=== PATIENT | male | born 1960 | race Caucasian/White ===

== ENCOUNTER 2016-08-24 15:09 | Inpatient (IN) | payer OTHER ==
[2016-08-24] VITALS (10 sets, daily range): BP systolic 92–115; BP diastolic 57–83
[~2016-08-24] VITALS: Ht 170.2 cm; Wt 72.8 kg
[~2016-08-24 15:09] MED LIST: BP MED
--- OUTSIDE RECORDS SUMMARY | 2016-08-24 15:16 | XMS REPORT | Continuity of Care Document ---
Author Author [facility] Organization [facility] Address Unknown Phone Unavailable Support Name Relationship Address Phone ALEXIA WALLACE MD Caregiver [address], [address] [place] [address] CORDELIA SMITH Next Of Kin [address] [place] [address] Insurance Providers Payer Name Policy Number Subscriber Name Relationship Unknown Luis Smith Sr 16 Self / Same As Patient Advance Directives Directive Response Recorded Date/Time Advance Directives No 07/15/14 9:11am Resuscitation Status Full Code 07/15/14 9:11am Problems No known problems or medical conditions. Medications Medication Dose Route Sig Days/Qty Instructions Order Date Discontinued Date Status [Bp Med] 07/15/14 Active Social History Social History Problem Response Recorded Date/Time Alcohol Use Occasionally Uses 07/15/2014 9:11am Recreational Drug Use No 07/15/2014 9:11am Recent Foreign Travel No 07/15/2014 9:07am Recent Infectious Disease Exposure No 07/15/2014 9:07am Smoking Status Current Everyday Smoker 07/15/2014 9:11am Query Response Start Date Stop Date Smoking Status Current Everyday Smoker Hospital Discharge Instructions No hospital discharge instructions. Plan of Care No plan of care. Functional Status Query Response Date Recorded Patient Orientation Person Place Time Situation July 15, 2014 9:07am Comprehension Ability Understands Concepts July 15, 2014 9:07am Allergies, Adverse Reactions, Alerts Allergen Type Severity Reaction Status Last Updated No Known Drug Allergies Active 07/15/14 Immunizations No immunization records. Vital Signs Acute Vital Signs Vital Response Date/Time Temperature (Fahrenheit) 97.2 degrees F (97.6 - 99.5) Temperature (Calculated Celsius) 36.76343 degrees C (36.4 - 37.5) Temperature Source Temporal Pulse Rate (adult) 90 bpm (60 - 90) Respiratory Rate 18 bpm (12 - 24) O2 Sat by Pulse Oximetry 97 % (88 - 100) Blood Pressure 180/104 mm Hg Pain Pain Intensity 0 Height (Feet) 5 feet Height (Inches) 11 inches Height (Calculated Centimeters) 180.943021 cm Weight (Pounds) 178 pounds Weight (Calculated Kilograms) 80.924993 kilograms Calculated BMI 24.82 Results Laboratory Results Test Name Result Units Flags Reference Collection Date/Time Result Date/ Time Comments White Blood Count 11.1 10^3/uL H 4.3-11.0 07/15/2014 9:1507/15/2014 10 :53am Red Blood Count 5.88 10^6/uL H 4.35-5.85 07/15/2014 9:1507/15/2014 10: 53am Hemoglobin 17.2 G/DL 13.3-17.7 07/15/2014 9:1507/15/2014 10:53am Hematocrit 49 % 40-54 07/15/2014 9:1507/15/2014 10:53am Mean Corpuscular Volume 83 FL 80-99 07/15/2014 9:1507/15/2014 10: 53am Mean Corpuscular Hemoglobin 29 PG 25-34 07/15/2014 9:1507/15/2014 10 :53am Mean Corpuscular Hemoglobin Concent 35 G/DL 32-36 07/15/2014 9:1512/2014 10:53am Red Cell Distribution Width 13.0 % 10.0-14.5 07/15/2014 9:152014 10:53am Platelet Count 255 10^3/uL 130-400 07/15/2014 9:1507/15/2014 10: 53am Mean Platelet Volume 11.2 FL H 7.4-10.4 07/15/2014 9:1507/15/2014 10: 53am Neutrophils (%) (Auto) 68 % 42-75 07/15/2014 9:1507/15/2014 10:53am Lymphocytes (%) (Auto) 21 % 12-44 07/15/2014 9:1507/15/2014 10:53am Monocytes (%) (Auto) 5 % 0-12 07/15/2014 9:1507/15/2014 10:53am Eosinophils (%) (Auto) 5 % 0-10 07/15/2014 9:1507/15/2014 10:53am Basophils (%) (Auto) 1 % 0-10 07/15/2014 9:1507/15/2014 10:53am Neutrophils # (Auto) 7.5 X 10^3 1.8-7.8 07/15/2014 9:1507/15/2014 10 :53am Lymphocytes # (Auto) 2.4 X 10^3 1.0-4.0 07/15/2014 9:1507/15/2014 10 :53am Monocytes # (Auto) 0.6 X 10^3 0.0-1.0 07/15/2014 9:1507/15/2014 10: 53am Eosinophils # (Auto) 0.5 10^3/uL H 0.0-0.3 07/15/2014 9:1507/15/2014 10:53am Basophils # (Auto) 0.1 10^3/uL 0.0-0.1 07/15/2014 9:1507/15/2014 10: 53am Sodium Level 140 MMOL/L 135-145 07/15/2014 9:1507/15/2014 11:14am Potassium Level 3.8 MMOL/L 3.6-5.0 07/15/2014 9:1507/15/2014 11: 14am Chloride Level 105 MMOL/L 98-107 07/15/2014 9:1507/15/2014 11:14am Carbon Dioxide Level 25 MMOL/L 21-32 07/15/2014 9:1507/15/2014 11: 14am Blood Urea Nitrogen 23 MG/DL H 7-18 07/15/2014 9:1507/15/2014 11:14am Creatinine 1.01 MG/DL 0.60-1.30 07/15/2014 9:1507/15/2014 11:14am BUN/Creatinine Ratio 23 07/15/2014 9:1507/15/2014 11:14am Estimat Glomerular Filtration Rate > 60 07/15/2014 9:152014 11:14am GFR INTERPRETIVE DATA UNITS FOR ESTIMATED GFR (eGFR): mL/min/1.73 M2 REFERENCE RANGE FOR ESTIMATED GFR (eGFR) eGFR NORMAL eGFR >60 MODERATELY DECREASED eGFR 30-59 SEVERLY DECREASED eGFR 15-29 KIDNEY FAILURE <15 (OR DIALYSIS) Glucose Level 248 MG/DL H 70-105 07/15/2014 9:15am 07/15/2014 11:14am Calcium Level 9.6 MG/DL 8.5-10.1 07/15/2014 9:1507/15/2014 11:14am Total Bilirubin 1.1 MG/DL H 0.1-1.0 07/15/2014 9:1507/15/2014 11:14am Alkaline Phosphatase 89 U/L 40-136 07/15/2014 9:1507/15/2014 11: 14am Aspartate Amino Transf (AST/SGOT) 22 U/L 5-34 07/15/2014 9:152014 11:14am Alanine Aminotransferase (ALT/SGPT) 45 U/L 0-55 07/15/2014 9:15am 07/15 11:14am Total Protein 7.4 G/DL 6.4-8.2 07/15/2014 9:15am 07/15/2014 11:14am Albumin 4.3 G/DL 3.2-4.5 07/15/2014 9:15am 07/15/2014 11:14am Procedures No known history of procedures. Encounters Encounter Location Date/Time Departed Emergency Room Via [facility] 07/15/14 9:04am Recent Diagnosis
[2016-08-24] MEDS ORDERED: LOSA1TAB70 PO (16:07)
[2016-08-24] MEDS ORDERED: ATEN50TA (16:07)
[2016-08-24] MEDS ORDERED: METF500T4 PO (16:07)
[2016-08-24] MEDS ORDERED: ATOR10TA66 PO (16:07)
[2016-08-24] MEDS ORDERED: TIOT18CA2 (16:07)
--- NOTE | 2016-08-24 16:09 | ED General ---
General Chief Complaint: General Problems/Pain Stated Complaint: WEAKNESS/NO ENERGY Nursing Triage Note: PT CO OF WEAKNESS FOR APPROX 1 WEEK, PT HAS NOT HAD BM FOR A WEEK, Nursing Sepsis Screen: No Definite Risk Source of Information: Patient Exam Limitations: No Limitations (BHARGAV PIERRE APRN) History of Present Illness Time Seen by Provider: 16:08 Initial Comments To ER with general weakness and shortness of breath for one week. Also states he is not a bowel movement for one week which is unusual for him. However, he does continue to pass gas. No nausea vomiting. No fevers or chills. No cough. No trauma or injury to the chest. Timing/Duration: 1 Week Severity: Moderate Associated Systoms: No Cough, Weakness (BHARGAV PIERRE APRN) Allergies and Home Medications Allergies Coded Allergies: No Known Drug Allergies (Unverified , 07/15/14) Home Medications (Reported) Atenolol 50 Mg Tablet #30 (Reported) Atorvastatin Calcium 10 Mg Tablet #30 (Reported) Losartan/Hydrochlorothiazide 1 Each Tablet #30 (Reported) Metformin HCl 500 Mg Tablet #60 (Reported) Tiotropium [place] 1 Inh Aerp #30 (Reported) Constitutional: see HPI EENTM: see HPI Respiratory: see HPI short of breath Cardiovascular: no symptoms reportedNo chest pain Genitourinary: no symptoms reported Musculoskeletal: no symptoms reported Skin: no symptoms reported Psychiatric/Neurological: No Symptoms Reported Hematologic/Lymphatic: No Symptoms Reported Immunological/Allergic: no symptoms reported (BHARGAV PIERRE APRN) Past Ymsugrx-Lprpim-Rzxeom Hx Patient Social History Alcohol Use: Denies Use Recreational Drug Use: No Smoking Status: Current Everyday Smoker Type Used: Cigarettes Recent Foreign Travel: No Contact w/Someone Who Travel: No Recent Infectious Disease Expo: No Recent Hopitalizations: No (BHARGAV PIERRE APRN) Surgeries HX Surgeries: No (BHARGAV PIERRE APRN) Respiratory Hx Respiratory Disorders: No (BHARGAV PIERRE APRN) Cardiovascular Hx Cardiac Disorders: Yes Cardiac Disorders: Hypertension (BHARGAV PIERRE APRN) Neurological Hx Neurological Disorders: No (BHARGAV PIERRE APRN) Reproductive System Hx Reproductive Disorders: No (BHARGAV PIERRE APRN) Genitourinary Hx Genitourinary Disorders: No (BHARGAV PIERRE APRN) Gastrointestinal Hx Gastrointestinal Disorders: No (BHARGAV PIERRE APRN) Endocrine Hx Endocrine Disorders: No (BHARGAV PIERRE APRN) HEENT HX ENT Disorders: No (BHARGAV PIERRE APRN) Physical Exam Vital Signs Vital Sign - Last 12Hours 08/24/16 15:40 Temp 97.5 Pulse 120 Resp 18 B/P 111/82 Pulse Ox 96 (ALEXIA WALLACE MD) Vital Signs Capillary Refill : Less Than 3 Seconds (BHARGAV PIERRE APRN) General Appearance: No Apparent Distress WD/WN Chronically ill Eyes: Bilateral Eye EOMI, Bilateral Eye Normal Inspection, Bilateral Eye PERRL HEENT: PERRL/EOMI TMs Normal Respiratory: No Accessory Muscle Use No Respiratory Distress Other ( absolutely no lung sounds on the left) Cardiovascular: Normal Peripheral Pulses Tachycardia Extremity: Normal Capillary Refill Normal Inspection Neurologic/Psychiatric: Alert Oriented x3 No Motor/Sensory Deficits Skin: Normal Color Warm/Dry (BHARGAV PIERRE APRN) Focused Exam Lactic Acid Level Laboratory Tests Test 08/24/16 15:32 08/24/16 16:00 Glucometer 293MG/DL (70-110) H Alanine Aminotransferase (ALT/SGPT) 17U/L (0-55) Albumin 3.6G/DL (3.2-4.5) Alkaline Phosphatase 88U/L (40-136) Anion Gap 19MMOL/L (5-14) H Aspartate Amino Transf (AST/SGOT) 12U/L (5-34) BUN/Creatinine Ratio 39 Blood Urea Nitrogen 57MG/DL (7-18) H Calcium Level 9.6MG/DL (8.5-10.1) Carbon Dioxide Level 18MMOL/L (21-32) L Chloride Level 88MMOL/L (98-107) L Creatinine 1.46MG/DL (0.60-1.30) H Estimat Glomerular Filtration Rate 50 Glucose Level 295MG/DL (70-105) H Lactic Acid Level 2.95MMOL/L (0.50-2.00) *H Potassium Level 4.0MMOL/L (3.6-5.0) Sodium Level 125MMOL/L (135-145) *L Total Bilirubin 0.8MG/DL (0.1-1.0) Total Protein 6.6G/DL (6.4-8.2) (ALEXIA WALLACE MD) Progress/Results/Core Measures Results/Orders Lab Results Laboratory Tests Test 08/24/16 15:32 08/24/16 16:00 Range/Units Glucometer 293 H 70-110 MG/DL Alanine Aminotransferase (ALT/SGPT) 17 0-55 U/L Albumin 3.6 3.2-4.5 G/DL Alkaline Phosphatase 88 40-136 U/L Anion Gap 19 H 5-14 MMOL/L Aspartate Amino Transf (AST/SGOT) 12 5-34 U/L BUN/Creatinine Ratio 39 Band Neutrophils 2 % Basophils # (Auto) 0.0 0.0-0.1 10^3/uL Basophils (%) (Auto) 0 0-10 % Blood Morphology Comment NORMAL Blood Urea Nitrogen 57 H 7-18 MG/DL Calcium Level 9.6 8.5-10.1 MG/DL Carbon Dioxide Level 18 L 21-32 MMOL/L Chloride Level 88 L 98-107 MMOL/L Creatinine 1.46 H 0.60-1.30 MG/DL Eosinophils # (Auto) 0.0 0.0-0.3 10^3/uL Eosinophils % (Manual) 0 % Eosinophils (%) (Auto) 0 0-10 % Estimat Glomerular Filtration Rate 50 Glucose Level 295 H 70-105 MG/DL Hematocrit 47 40-54 % Hemoglobin 17.3 13.3-17.7 G/DL Lactic Acid Level 2.95 *H 0.50-2.00 MMOL/L Lymphocytes # (Auto) 1.0 1.0-4.0 X 10^3 Lymphocytes % (Manual) 1 % Lymphocytes (%) (Auto) 4 L 12-44 % Mean Corpuscular Hemoglobin 29 25-34 PG Mean Corpuscular Hemoglobin Concent 37 H 32-36 G/DL Mean Corpuscular Volume 77 L 80-99 FL Mean Platelet Volume 10.1 7.4-10.4 FL Monocytes # (Auto) 1.6 H 0.0-1.0 X 10^3 Monocytes % (Manual) 5 % Monocytes (%) (Auto) 7 0-12 % Neutrophils # (Auto) 20.2 H 1.8-7.8 X 10^3 Neutrophils % (Manual) 92 % Neutrophils (%) (Auto) 88 H 42-75 % Platelet Count 568 H 130-400 10^3/uL Potassium Level 4.0 3.6-5.0 MMOL/L Red Blood Count 6.06 H 4.35-5.85 10^6/uL Red Cell Distribution Width 13.7 10.0-14.5 % Serum Alcohol < 10 <10 MG/DL Sodium Level 125 *L 135-145 MMOL/L Total Bilirubin 0.8 0.1-1.0 MG/DL Total Protein 6.6 6.4-8.2 G/DL White Blood Count 22.9 H 4.3-11.0 10^3/uL (ALEXIA WALLACE MD) Medications Given in ED Current Medications Medications Dose Ordered Sig/José Luis Route Start Time Stop Time Status Last Admin Dose Admin Piperacillin Sod/ Tazobactam Sod/ Sodium Chloride 100 ml @ 200 mls/hr ONCE ONCE IV 08/24/16 17:00 08/24/16 17:29 DC 08/24/16 17:30 200 MLS/HR (BHARGAV PIERRE APRN) Vital Signs/I&O Vital Sign - Last 12Hours 08/24/16 15:40 Temp 97.5 Pulse 120 Resp 18 B/P 111/82 Pulse Ox 96 (ALEXIA WALLACE MD) Blood Pressure Mean: 92 Diagnostic Imaging Diagonstic Imaging: Xray Plain Films/CT/US/NM/MRI: chest Comments NAME: SHASTA SMITH MED REC#: [id number] PT STATUS: REG ER : 1960 PHYSICIAN: BHARGAV PIERRE APRN ADMIT DATE: 08/24/16/ER Draft Date of Exam:08/24/16 CHEST 1 VIEW, AP/PA ONLY INDICATION: Shortness of breath. COMPARISON: None. FINDINGS: Single view of the chest demonstrates complete opacification of the left hemithorax, likely from effusion. The right lung is clear. There is no pneumothorax. Cardiac silhouette is difficult to evaluate. IMPRESSION: Complete opacification of the left hemithorax, likely effusion. Dictated on workstation # [id number] Dict: 08/24/16 1608 Trans: 08/24/16 1613 [id number] Interpreted by: SOCORRO VITAL Electronically signed by: (BHARGAV PIERRE APRN) Departure Communication Communication I discussed the case with Dr. Alarcon. She agrees to admit the patient. I also discussed the case with Dr. Sen. He will be in to do a thoracentesis. Dr. Donis will be back in town in the morning and we will consult him at that time. 2007-Dr. Sen has been down here and did remove 3600 or 3700 mL of tea- colored fluid. I also did fill out a paper requisition for cytology and sent this to lab. (BHARGAV PIERRE APRN) Progress Notes The laboratory and CT scan were reviewed with nurse practitioner Brett. These were then discussed over the phone with Dr. Sen who is surgeon on-call tonight. It is agreed that he will come to the ER to perform a thoracentesis. The plan would be if this is fluid he will be admitted for treatment here. If it is possible he will need to be transferred. He requests ultrasound to [facility] (ALEXIA WALLACE MD) Impression Impression: Primary Impression: large left pleural effusion Additional Impression: Hyponatremia Disposition: HOME, SELF-CARE Condition: Improved Decision to Admit Reason: Admit from ER (General) Decision to Admit/Date: Aug 24, 2016 Time/Decision to Admit Time: 20:09 (BHARGAV PIERRE APRN) Departure-Patient Inst. Decision time for Depature: 20:09 (BHARGAV PIERRE APRN) Referrals: BHAVNA ELLSWORTH MD (PCP/Family) Primary Care Physician BHARGAV PIERRE APRN Aug 24, 2016 16:09 ALEXIA WALLACE MD Aug 24, 2016 17:30
[2016-08-24] MEDS: NS IV 1000 ML 1,000 ML IV SCH (16:13)
--- NOTE | 2016-08-24 16:14 | Diagnostic Imaging Report ---
INDICATION: Shortness of breath. COMPARISON: None. FINDINGS: Single view of the chest demonstrates complete opacification of the left hemithorax, likely from effusion. The right lung is clear. There is no pneumothorax. Cardiac silhouette is difficult to evaluate. IMPRESSION: Complete opacification of the left hemithorax, likely effusion. Dictated by: Dictated on workstation # [id number]
[2016-08-24 16:20] LABS: BASOPHILS % (AUTO) 0 % (0-10); EOSINOPHILS % (AUTO) 0 % (0-10); LYMPHOCYTES % (AUTO) 4 % (12-44); MEAN CORPUSCULAR HEMOGLOBIN 29 PG (25-34); MEAN CORPUSCULAR HGB CONC 37 G/DL (32-36); MEAN CORPUSCULAR VOLUME 77 FL (80-99); MEAN PLATELET VOLUME 10.1 FL (7.4-10.4); MONOCYTES # (AUTO) 1.6 X 10^3 (0.0-1.0); MONOCYTES % (AUTO) 7 % (0-12); NEUTROPHILS # (AUTO) 20.2 X 10^3 (1.8-7.8); NEUTROPHILS % (AUTO) 88 % (42-75); PLATELET COUNT 568 10^3/uL (130-400); RED BLOOD COUNT 6.06 10^6/uL (4.35-5.85); RED CELL DISTRIBUTION WIDTH 13.7 % (10.0-14.5); WHITE BLOOD COUNT 22.9 10^3/uL (4.3-11.0)
[2016-08-24 16:32] LABS: BAND NEUTROPHILS 2 %; EOSINOPHILS % (MANUAL) 0 %; LYMPHOCYTES % (MANUAL) 1 %; NEUTROPHILS % (MANUAL) 92 %
[2016-08-24 16:42] LABS: ALANINE AMINOTRANSFERASE 17 U/L (0-55); ANION GAP 19 MMOL/L (5-14); ASPARTATE AMINO TRANSFERASE 12 U/L (5-34); BILIRUBIN,TOTAL 0.8 MG/DL (0.1-1.0); BLOOD UREA NITROGEN 57 MG/DL (7-18); BUN/CREATININE RATIO 39; CALCIUM 9.6 MG/DL (8.5-10.1); CARBON DIOXIDE 18 MMOL/L (21-32); CHLORIDE 88 MMOL/L (98-107); CREATININE SERUM 1.46 MG/DL (0.60-1.30); GFR ESTIMATED 50; GLUCOSE 295 MG/DL (70-105)
[2016-08-24 16:43] LABS: ALBUMIN 3.6 G/DL (3.2-4.5); ALCOHOL < 10 MG/DL (<10); SODIUM 125 MMOL/L (135-145); TOTAL PROTEIN 6.6 G/DL (6.4-8.2)
[2016-08-24] MEDS ORDERED: PIPERACILLIN SODIUM/TAZOBACTAM 4.5 GM in NS (IVPB) 100 ML IV ONE (17:00)
--- NOTE | 2016-08-24 17:18 | Diagnostic Imaging Report ---
PROCEDURE: CT chest, abdomen, and pelvis without contrast. TECHNIQUE: Multiple contiguous axial images were obtained through the chest, abdomen, and pelvis without the use of intravenous contrast. INDICATION: Shortness of breath with history of smoking. COMPARISON: Comparison made with a chest radiograph from August 24, 2016. FINDINGS: There is a marked left-sided pleural collection demonstrated with near-complete collapse demonstrated of the left lung. This is of low density and suggestive of simple pleural fluid. There is a small amount of aeration of the left upper lobe. There is no definitive hilar mass. The right lung demonstrates no focal infiltrate. There is no right-sided effusion. There is no pneumothorax. The pleural effusion results in shift of the mediastinum from left to right. There is no pericardial effusion. No enlarged mediastinal lymph nodes are evident. There are mild atherosclerotic calcifications present within the aortic arch. The noncontrast appearance of the liver demonstrates no focal abnormality. There is mild prominence of the gallbladder without radiodense stone or biliary dilatation. There is no adrenal mass. The spleen is normal in size. Kidneys appear nonobstructed. No pancreatic mass is demonstrated. Pancreatic atrophy is present. The small and large bowel are normal in caliber without evidence of obstruction or abnormal bowel thickening. There is no focal inflammatory fat stranding evident within the omentum or mesentery. There is no free air or free fluid. Urinary bladder and prostate are unremarkable. There is a fat-containing right inguinal hernia. There are no pathologically enlarged abdominal or pelvic lymph nodes. There are advanced atherosclerotic calcifications within a normal caliber aorta. Multilevel degenerative features are demonstrated throughout the spine without evidence of a suspicious lytic or blastic lesion or evidence of an acute osseous abnormality. IMPRESSION: 1. The left hemithorax is nearly completely occupied by a large pleural effusion with near-complete collapse of the left lung with only a small portion of aerated left upper lobe remaining. There is no definitive noncontrast evidence of a left-sided hilar mass. Reassessment would be recommended after therapeutic management of the large left effusion. 2. The right lung appears clear. 3. There is no evidence of an acute inflammatory or obstructive process within the abdomen or pelvis. 4. No acute or suspicious osseous lesions demonstrated. Dictated by: Dictated on workstation # [id number]
--- NOTE | 2016-08-24 19:39 | Diagnostic Imaging Report ---
EXAMINATION: Portable chest. INDICATION: Status post thoracentesis. COMPARISON: Prior examination from earlier the same day. FINDINGS: There has been marked interval improvement in the patient's left-sided pleural effusion status post thoracentesis. A moderate degree of pleural fluid remains at the left base. There is no evidence of a pneumothorax. The right lung appears clear. There is diminished shift of the mediastinum from left to right. IMPRESSION: Marked improvement in left-sided pleural effusion status post thoracentesis. No pneumothorax is evident. Dictated by: Dictated on workstation # [id number]
--- NOTE | 2016-08-24 19:53 | Diagnostic Imaging Report ---
EXAMINATION: Sonographic imaging of the left chest. INDICATION: Left pleural effusion. FINDINGS: Sonographic images demonstrate large left-sided pleural effusion. This is smaller on the post thoracentesis images. IMPRESSION: Sonographic imaging utilized during left sided thoracentesis. Dictated by: Dictated on workstation # [id number]
[2016-08-24 20:09] LABS: GLUCOSE,BODY FLUID 51 MG/DL; LDH,BODY FLUID 1548 U/L; TOTAL PROTEIN,BODY FLUID 4.1 G/DL
[2016-08-24] MEDS ORDERED: NS IV 1000 ML 1,000 ML ONE (20:40)
[2016-08-24] MEDS ORDERED: RT-ALBUTEROL SULF 2.5 MG/3 ML PRE-MIX VIAL INH PRN (21:15)
[2016-08-24] MEDS ORDERED: CEFEPIME 2 GM/NS 50 ML IVPB IV SCH ×2 (21:45)
[2016-08-24] MEDS ORDERED: ACETAMINOPHEN 325 MG TABLET/CAPLET (TYLENOL) PO PRN (21:45)
[2016-08-24] MEDS ORDERED: LEVOFLOXACIN 750 MG/D5W 150 ML PRE-MIX IV SCH (21:45)
[2016-08-24] MEDS ORDERED: NICOTINE 21 MG (NICODERM) PATCH ONE (23:58)
[2016-08-25] VITALS (12 sets, daily range): BP systolic 91–119; BP diastolic 68–81
[2016-08-25] MEDS: NS IV 1000 ML 1,000 ML IV SCH ×5 (00:03→18:41)
[2016-08-25] MEDS: CATHETER FLUSH 10 ML SYR IV SCH ×2 (00:07→05:20)
[2016-08-25 03:35] LABS: BASOPHILS % (AUTO) 0 % (0-10); EOSINOPHILS # (AUTO) 0.1 10^3/uL (0.0-0.3); EOSINOPHILS % (AUTO) 1 % (0-10); LYMPHOCYTES # (AUTO) 1.1 X 10^3 (1.0-4.0); LYMPHOCYTES % (AUTO) 5 % (12-44); MEAN CORPUSCULAR HEMOGLOBIN 28 PG (25-34); MEAN CORPUSCULAR HGB CONC 37 G/DL (32-36); MEAN CORPUSCULAR VOLUME 77 FL (80-99); MEAN PLATELET VOLUME 9.8 FL (7.4-10.4); MONOCYTES # (AUTO) 1.6 X 10^3 (0.0-1.0); MONOCYTES % (AUTO) 8 % (0-12); NEUTROPHILS # (AUTO) 18.1 X 10^3 (1.8-7.8); NEUTROPHILS % (AUTO) 87 % (42-75); PLATELET COUNT 390 10^3/uL (130-400); RED BLOOD COUNT 5.74 10^6/uL (4.35-5.85); RED CELL DISTRIBUTION WIDTH 13.6 % (10.0-14.5); WHITE BLOOD COUNT 20.9 10^3/uL (4.3-11.0)
[2016-08-25 03:57] LABS: ALANINE AMINOTRANSFERASE 10 U/L (0-55); ALBUMIN 2.6 G/DL (3.2-4.5); ANION GAP 8 MMOL/L (5-14); ASPARTATE AMINO TRANSFERASE 15 U/L (5-34); BILIRUBIN,TOTAL 0.8 MG/DL (0.1-1.0); BLOOD UREA NITROGEN 41 MG/DL (7-18); BUN/CREATININE RATIO 53; CALCIUM 7.9 MG/DL (8.5-10.1); CARBON DIOXIDE 22 MMOL/L (21-32); CHLORIDE 99 MMOL/L (98-107); CREATININE SERUM 0.77 MG/DL (0.60-1.30); GFR ESTIMATED > 60; GLUCOSE 173 MG/DL (70-105); MAGNESIUM 1.9 MG/DL (1.8-2.4); PHOSPHORUS 2.8 MG/DL (2.3-4.7); POTASSIUM 3.8 MMOL/L (3.6-5.0); SODIUM 129 MMOL/L (135-145); TOTAL PROTEIN 4.6 G/DL (6.4-8.2)
[2016-08-25] MEDS ORDERED: KCL 20 MEQ TAB (K-DUR) PO SCH (06:00)
[2016-08-25] MEDS ORDERED: MAGNESIUM 1 GM/100 ML IVPB 100 ML IV SCH (06:00)
[2016-08-25] MEDS ORDERED: POTASSIUM CL 10MEQ/50ML IVPB 50 ML IV SCH (06:00)
[2016-08-25] MEDS ORDERED: FLU TRIvalent (5 YOA+) 2016-17 (AFLURIA) 0.5 ML IM ONE (07:00)
--- NOTE | 2016-08-25 07:01 | Pulmonary Consultation ---
History of Present Illness History of Present Illness Date of Consultation 08/25/16 06:56 Date of Admission History of Present Illness 56yo 45 pk/yr hx of tobacco use presented secondary to weakness and worsening SOB over last week. Pt was found to have large left pleural effusion and Dr. Sen did thoracentesis at 1830. Pleural fluid was sent for cytology and cultures. PT was found to have sepsis and was admitted to ICU. Denies fever or productive cough. No prior episodes like this. I am consulted for pulmonary management. Allergies and Home Medications Allergies Coded Allergies: No Known Drug Allergies (Unverified , 07/15/14) Home Medications (Reported) Atenolol 50 Mg Tablet #30 (Reported) Atorvastatin Calcium 10 Mg Tablet #30 (Reported) Losartan/Hydrochlorothiazide 1 Each Tablet #30 (Reported) Metformin HCl 500 Mg Tablet #60 (Reported) Tiotropium [place] 1 Inh Aerp #30 (Reported) Past Fznmmah-Ggzfqh-Tggobi Hx Patient Social History Alcohol Use: Denies Use Recreational Drug Use: No Smoking Status: Current Everyday Smoker Type Used: Cigarettes Recent Foreign Travel: No Contact w/Someone Who Travel: No Recent Infectious Disease Expo: No Recent Hopitalizations: No Physical Abuse Screen: No Sexual Abuse: No Seasonal Allergies Seasonal Allergies: No Surgeries HX Surgeries: No Respiratory Hx Respiratory Disorders: No Cardiovascular Hx Cardiac Disorders: Yes Cardiac Disorders: Hypertension Neurological Hx Neurological Disorders: No Reproductive System Hx Reproductive Disorders: No Genitourinary Hx Genitourinary Disorders: No Gastrointestinal Hx Gastrointestinal Disorders: No Endocrine Hx Endocrine Disorders: No HEENT HX ENT Disorders: No Blood Transfusions Adverse Reaction to a Blood Tr: No Review of Systems Constitutional: : Malaise: WeaknessNo: Chills, Fever, Other, Sweats Eyes: No: Conjunctivae inflammation, Eyelid inflammation, Other, Pain, Redness , Vision change ENT: No: Ear discharge, Ear pain, Mouth pain, Mouth swelling, Nose congestion, Nose discharge, Nose pain, Other, Throat pain, Throat swelling Respiratory: : Cough: Dry: SOB with excertion: Shortness of breath Cardiovascular: : Paroxysmal Noc. DyspneaNo: Chest Pain, Edema, Lt Headedness, Orthopnea, Other, Palpitations Exam Exam Vital Signs Date Time Temp Pulse Resp B/P Pulse Ox O2 Delivery O2 Flow Rate FiO2 08/25/16 06:00 112 20 100/81 100 Room Air 08/25/16 05:00 112 21 95/71 99 Room Air 08/25/16 04:00 105 23 104/73 99 Room Air 08/25/16 03:00 102 18 105/75 100 Room Air 08/25/16 02:00 106 18 95/72 100 Room Air 08/25/16 01:00 105 08/25/16 01:00 105 21 104/72 98 Room Air 08/25/16 00:00 98 20 105/80 99 Room Air 08/25/16 00:00 97.0 08/24/16 23:30 99 21 112/80 99 Nasal Cannula 2.00 08/24/16 23:00 102 21 110/83 96 Nasal Cannula 2.00 08/24/16 22:30 97 23 93/57 100 Nasal Cannula 2.00 08/24/16 22:00 100 21 107/60 100 Nasal Cannula 3.00 08/24/16 21:45 94 21 96/62 100 Nasal Cannula 3.00 08/24/16 21:30 94 21 113/79 100 Nasal Cannula 3.00 08/24/16 21:15 93 23 103/63 100 Nasal Cannula 3.00 08/24/16 21:01 2.00 08/24/16 21:00 96 13 92/64 97 Nasal Cannula 3.00 08/24/16 20:59 97 08/24/16 20:45 100 25 107/70 91 Nasal Cannula 3.00 08/24/16 20:41 97.8 101 20 115/71 87 Nasal Cannula 3.00 08/24/16 20:25 97.5 120 18 96 08/24/16 15:40 97.5 120 18 111/82 96 I & O 08/25/16 07:00 Intake Total 600 ml Output Total 1350 ml Balance -750 ml General Appearance: No Apparent Distress WD/WN Chronically ill HEENT: PERRL/EOMI TMs Normal Respiratory: No Accessory Muscle Use No Respiratory Distress Other ( absolutely no lung sounds on the left) Cardiovascular: Normal Peripheral Pulses Tachycardia Capillary Refill: Less Than 3 Seconds Extremity: Normal Capillary Refill Normal Inspection Neurologic/Psychiatric: Alert Oriented x3 No Motor/Sensory Deficits Skin: Normal Color Warm/Dry Results Lab Laboratory Tests 08/24/16 16:00 08/25/16 03:25 Assessment/Plan Assessment/Plan Large left pleural effusion r/o cancer -- Exudative -- I suspect cancer -Check repeat CT of chest post thoracentesis -Await cytology from pleural fluid Dehydration with metabolic lactic acidosis -- Pt has been on metformin -- Pt states has not taken it for several days -Repeat liter bolus of NS Sepsis - -Continue current Abx -Rodriguez cultures Tobacco hx with probable COPD -Check out patient PFT -education PT is doing better will transfer to 4th floor Clinical Quality Measures DVT/VTE Risk/Contraindication: Risk Factor Score Per Nursin RFS Level Per Nursing on Admit: 2=Moderate TROY GROVES DO Aug 25, 2016 07:01
[2016-08-25] MEDS ORDERED: NS IV 1000 ML 1,000 ML IV SCH (07:45)
--- NOTE | 2016-08-25 07:52 | PROCEDURE REPORT ---
PROCEDURE PHYSICIAN: MARY SEN DATE OF PROCEDURE: 08/24/2016 PREOPERATIVE DIAGNOSIS: Left chest pleural effusion. POSTOPERATIVE DIAGNOSIS: Left chest pleural effusion. PROCEDURE: Left chest thoracentesis, ultrasound guidance. SURGEON: Dr. Sen. ANESTHESIA: Local. 1% lidocaine 5 mL. INDICATIONS: The patient is a 56-year-old male with significant pleural effusion of the left chest having some shortness of breath. He was explained the risks and benefits of procedure and wished to proceed with the procedure. Consent was signed on the chart. PROCEDURE: The patient was sitting in the forward rolling position. Ultrasound used to locate a significant pocket of pleural fluid. At approximally the left 7th rib, local anesthetic was infiltrated. A stab incision was made with an 11 blade scalpel and using the safety thoracentesis kit. The catheter was inserted. Carley fluid was withdrawn and the catheter was advanced over the needle. A total of 3700 mL of carley-colored fluid was taken out of the left chest. Once removed, the catheter was then removed and sterile bandage was applied. The patient, after the procedure, began breathing significantly easier he states and feeling much better. Chest x-ray pending. Job ID: [id number] Dictated Date: 08/24/2016 19:44:54 [employer] Supervisor Date: 08/25/2016 07:46:52 / codi
[2016-08-25 07:58] LABS: BILIRUBIN,URINE 1+ (NEGATIVE); KETONES,URINE NEGATIVE (NEGATIVE); LEUKOCYTE ESTERASE ,URINE 1+ (NEGATIVE); NITRITE,URINE NEGATIVE (NEGATIVE); PH,URINE 6 (5-9); PROTEIN,URINE 2+ (NEGATIVE); UROBILINOGEN,URINE NORMAL (NORMAL)
[2016-08-25] MEDS ORDERED: NS 100 ML (IVPB) BAG IV ONE (08:00)
[2016-08-25] MEDS ORDERED: IOHEXOL 350 MG/ML 100 ML (OMNIPAQUE 350) VIAL IV ONE (08:00)
[2016-08-25 08:17] LABS: HYALINE CASTS, URINE 0-2 /LPF; WBC,URINE 0-2 /HPF
--- NOTE | 2016-08-25 08:36 | Diagnostic Imaging Report ---
PROCEDURE: CT chest with contrast only. TECHNIQUE: Multiple contiguous axial images were obtained through the chest after administration of intravenous contrast. INDICATION: Pleural effusion. Comparison made with previous day. There is a complex left pleural effusion. This layers out to a depth of 23 mm in diameter. The pleura appears thickened. There is consolidation of the peripheral lung, left lower lobe. There is also some infiltrate in the left upper lobe. Right lung is clear. There is no hilar or mediastinal lymphadenopathy. IMPRESSION: Left pleural effusion markedly smaller than on the previous day's comparison CT. There has been partial reaeration of the left lung with some residual consolidation in the left lower lung and some faint alveolar infiltrate in the left upper lobe. Dictated by: Dictated on workstation # [id number]
--- NOTE | 2016-08-25 08:48 | Diagnostic Imaging Report ---
INDICATION: Dyspnea, followup left pleural effusion. DISCUSSION: Single portable upright view of the chest was obtained, comparison 08/24/2016. Small left pleural effusion appears slightly increased in size. Infiltrate within the left lung is also increased from prior exam. The right lung is well-aerated. Normal heart size. No osseous abnormality. IMPRESSION: 1. Small left pleural effusion, slightly increased. 2. Left lung infiltrate, increased. Dictated by: Dictated on workstation # [id number]
--- NOTE | 2016-08-25 09:23 | History & Physical-Hospitalist ---
HPI History of Present Illness: HPI/Chief Complaint CC: SOB and weakness w/constipation HPI: This is a 56-year-old white male clinic patient of [facility] the presents to the emergency room with abdominal pain, shortness of breath and constipation for the last 1 week. He was found to have a severe large left- sided pleural effusion and Dr. Sen was consulted who performed thoracentesis and removed 3.7 L of fluid that has been sent to lab for evaluation. Repeat CT scan considering high suspicion of neoplastic process reveals residual infiltrate and pleural fluid that had been removed yesterday. Patient has been placed empirically on cefepime and Levaquin and nebulizer treatments and she denies any significant pain issues. He is being transferred to fourth floor and will be followed up closely for reaccumulation of pleural fluid. Source: patient Exam Limitations: no limitations Date Seen 08/25/16 Attending Physician Shanon Alarcno MD PCP Curry Vann MD Referring Physician Date of Admission Aug 24, 2016 at 17:27 Home Medications & Allergies Home Medications Reviewed patient Home Medication Reconciliation Form Allergies Coded Allergies: No Known Drug Allergies (Unverified , 07/15/14) Past Nayqxhu-Fbiird-Abfrkt Hx Patient Social History Marrital Status: single Employed/Student: unemployed Alcohol Use: Denies Use Recreational Drug Use: No Smoking Status: Current Everyday Smoker Type Used: Cigarettes Physical Abuse Screen: No Sexual Abuse: No Recent Foreign Travel: No Contact w/other who traveled: No Recent Hopitalizations: No Recent Infectious Disease Expo: No Seasonal Allergies Seasonal Allergies: No Surgeries HX Surgeries: No Respiratory Hx Respiratory Disorders: Yes Respiratory Disorders: COPD Cardiovascular Hx Cardiovascular Disorders: Yes Cardiac Disorders: Hypertension Neurological Hx Neurological Disorders: No Reproductive System Hx Reproductive Disorders: No Genitourinary Hx Genitourinary Disorders: No Gastrointestinal Hx Gastrointestinal Disorders: No Endocrine Hx Endocrine Disorders: No HEENT HX ENT Disorders: No Blood Transfusions Adverse Reaction to a Blood Tr: No Review of Systems Constitutional: see HPI dizziness weakness EENTM: no symptoms reported Respiratory: cough dyspnea on exertion short of breath wheezing Cardiovascular: no symptoms reported Gastrointestinal: constipation Genitourinary: no symptoms reported Musculoskeletal: back pain Skin: no symptoms reported Psychiatric/Neurological: No Symptoms Reported All Other Systems Reviewed Negative Unless Noted: Yes Physical Exam Physical Exam Vital Signs Vital Sign - Last 12Hours 08/24/16 08/24/16 15:40 20:41 Temp 97.5 Pulse 120 Resp 18 B/P 111/82 Pulse Ox 96 O2 Delivery Nasal Cannula O2 Flow Rate 3.00 Capillary Refill : Less Than 3 Seconds General Appearance: No Apparent Distress WD/WN Chronically ill Eyes: Bilateral Eye Normal Inspection, Bilateral Eye PERRL HEENT: PERRL/EOMI Normal ENT Inspection Pharynx Normal Neck: Full Range of Motion Normal Inspection Non Tender Supple Carotid Bruit Respiratory: Chest Non Tender No Accessory Muscle Use No Respiratory Distress Decreased Breath Sounds (significantly decreased on the left) Cardiovascular: Regular Rate, Rhythm No Edema No Gallop No JVD No Murmur Normal Peripheral Pulses Gastrointestinal: Normal Bowel Sounds No Organomegaly No Pulsatile Mass Non Tender Soft Back: Normal Inspection No CVA Tenderness No Vertebral Tenderness Extremity: Normal Capillary Refill Normal Inspection Normal Range of Motion Non Tender No Calf Tenderness No Pedal Edema Neurologic/Psychiatric: Alert Oriented x3 No Motor/Sensory Deficits Normal Mood/Affect Skin: Normal Color Warm/Dry Lymphatic: No Adenopathy Results Results/Procedures Lab Laboratory Tests 08/24/16 16:00 08/25/16 03:25 Assessment/Plan Admission Diagnosis Assessment: Left-sided pleural effusion status post thoracentesis uncomplicated by Dr. Sen removing 3.7 L of fluid analysis and labs pending Infiltrate noted on repeat CT scan status post thoracentesis empirically placed on cefepime and Levaquin COPD Current smoker Hypertension Chronic illness and debility Assessment and Plan Plan: Maintain antibiotics Nebulizer treatments Oxygen Appreciate Dr. Donis's valuation and management Appreciate Dr. Sen service Clinical Quality Measures DVT/VTE Risk/Contraindication: Risk Factor Score Per Nursin RFS Level Per Nursing on Admit: 2=Moderate DAWIT LOZANO DO Aug 25, 2016 09:23
[2016-08-25] MEDS ORDERED: ASPI-808 PO (10:13)
[2016-08-25] MEDS: inSUlin ASPART (NovoLOG) 1 UNIT/0.01 ML (CHARGE PER UNIT) SC SCH ×3 (11:20→22:14)
[2016-08-25] MEDS: CEFEPIME 2 GM/NS 50 ML IVPB IV SCH ×2 (11:21)
--- NOTE | 2016-08-25 15:08 | Physical Therapy Evaluation ---
PT Evaluation-General Medical Diagnosis Admission Date Aug 24, 2016 at 17:27 Medical Diagnosis: pleural effusion Onset Date: Aug 24, 2016 Therapy Diagnosis Therapy Diagnosis: weakness Height/Weight Height (Feet): 5 Height (Inches): 7.00 Weight (Pounds): 139 Weight (Ounces): 5.0 Precautions Precautions/Isolations: Standard Precautions Referral Physician: Dorian Reason for Referral: Evaluation/Treatment Medical History Pertinent Medical History: COPD, HTN, Smoking Additional Medical History chronic illness; debility Current History Admitted to hospital with pleural effusion; post left chest thoracentesis. Reviewed History: Yes Social History Home: travel trailer Current Living Status: Alone Entry Into Home: Stairs With Railing PT Steps Into Home: 1 Prior/Core FIM Prior Level of Function Functional [place] Measure 0=Not Assessed/NA 4=Minimal Assistance 1=Total Assistance 5=Supervision or Setup 2=Maximal Assistance 6=Modified [place] 3=Moderate Assistance 7=Complete [place] Pt was indep with all functional mobility at [facility]. Still drives and ambulates in the community. PT Evaluation-Current Subjective Agrees to PT. Reports he feels much better today. Hopes to go home tomorrow. Pain Numeric Pain Scale: 0-No Pain Location: No Pain Reported ROM/Strength ROM Lower Extremities WFL Strenght Lower Extremities WFL Integumentary/Posture Bowel Incontinence: No Bladder Incontinence: No Posture normal Neuromuscular (Tone, Coordination, Reflexes) no noted deficits Sensory Vision: Functional Hearing: Functional Hand Dominance: Right Sensation Right Lower Extremit: Intact Sensation Left Lower Extremity: Intact Transfers Functional [place] Measure 0=Not Assessed/NA 4=Minimal Assistance 1=Total Assistance 5=Supervision or Setup 2=Maximal Assistance 6=Modified [place] 3=Moderate Assistance 7=Complete [place] Pt is indep with bed mobility and transfers. Gait Mode of Locomotion: Walk Gait (FIM): 7 Distance (FIM): 3=150 ft Comments/Gait Description Pt ambulated x 250 ft indep with normal gait pattern and colleen. Balance Sitting Static: Normal Sitting Dynamic: Normal Standing Static: Normal Standing Dynamic: Normal Assessment/Needs Safe gait and functional mobility. No current PT needs. Rehab Potential: Good PT Prison Goals Prison Goals No goals set. No skilled PT needs at this time. PT Plan Treatment/Plan Treatment Plan: Discontinue PT Safety Risks/Education Patient Education: Safety Issues Teaching Recipient: Patient Teaching Methods: Discussion Response to Teaching: Verbalize Understanding Discharge Recommendations Plan DC PT. No skilled PT intervention indicated at this time. Time/GCodes Time In: 1450 Time Out: 1505 Total Billed Treatment Time: 15 Total Billed Treatment visit EVM 15 PAKO CRAWFORD PT Aug 25, 2016 15:08
--- NOTE | 2016-08-25 18:22 | Consultation ---
History of Present Illness History of Present Illness Patient Consulted On(aiden/time) 08/24/16 19:00 Date of Admission History of Present Illness Consult requested by Dr. Elias for thoracentesis. Patient is a 56 year old male who has been having shortness of breath for about 1 week. No improvement. He has been hypotensive. Nothing makes breathing easier. Activity was making worse. He had a chest x ray demonstrating white out of the left chest. Ct scan showing collapsed left lung with large pleural effusion. Patient also tachycardic and elevated WBC. Dr. Elias has asked for thoracentesis left chest to be performed. Allergies and Home Medications Allergies Coded Allergies: No Known Drug Allergies (Unverified , 07/15/14) Home Medications Aspirin 325 Mg Tablet 325 MG PO DAILY (Reported) Atorvastatin Calcium 10 Mg Tablet 10 MG PO DAILY (Reported) Losartan/Hydrochlorothiazide 1 Each Tablet 1 TAB PO DAILY (Reported) Metformin HCl 500 Mg Tablet 500 MG PO BID (Reported) Past Iwmwlag-Xmgksp-Lfpyre Hx Patient Social History Alcohol Use: Denies Use Recreational Drug Use: No Smoking Status: Current Everyday Smoker Type Used: Cigarettes Recent Foreign Travel: No Contact w/Someone Who Travel: No Recent Infectious Disease Expo: No Recent Hopitalizations: No Physical Abuse Screen: No Sexual Abuse: No Seasonal Allergies Seasonal Allergies: No Surgeries HX Surgeries: No Respiratory Hx Respiratory Disorders: Yes Cardiovascular Hx Cardiac Disorders: Yes Cardiac Disorders: Hypertension Neurological Hx Neurological Disorders: No Reproductive System Hx Reproductive Disorders: No Genitourinary Hx Genitourinary Disorders: No Gastrointestinal Hx Gastrointestinal Disorders: No Endocrine Hx Endocrine Disorders: No HEENT HX ENT Disorders: No Blood Transfusions Adverse Reaction to a Blood Tr: No Family Medical History Significant Family History: No Pertinent Family Hx Review of Systems-General Constitutional: see HPI EENTM: no symptoms reported Respiratory: see HPI Cardiovascular: no symptoms reported Gastrointestinal: no symptoms reported Genitourinary: no symptoms reported Musculoskeletal: no symptoms reported Skin: no symptoms reported Psychiatric/Neurological: No Symptoms Reported Physical Exam-General Problems Physical Exam Vital Signs Vital Sign - Last 12Hours 08/24/16 08/24/16 15:40 20:41 Temp 97.5 Pulse 120 Resp 18 B/P 111/82 Pulse Ox 96 O2 Delivery Nasal Cannula O2 Flow Rate 3.00 Capillary Refill : Less Than 3 Seconds General Appearance: mild distress HEENT: PERRL/EOMI Neck: supple Respiratory: other (decreased breath sounds left) Cardiovascular: tachycardia Gastrointestinal: non tender soft Rectal: deferred Back: normal inspection Extremities: non-tender Neurologic/Psychiatric: alert normal mood/affect oriented x 3 Skin: warm/dry Data Review Labs Bad table Assessment/Plan Assessment/Plan Assessment/Plan left pleural effusion, sepsis, hyponatremia large left pleural effusion discussed risks and benefits of thoracentesis patient agrees to procedure to perform procedure using u/s guidance Clinical Quality Measures DVT/VTE Risk/Contraindication: Risk Factor Score Per Nursin RFS Level Per Nursing on Admit: 2=Moderate MARY ROE DO Aug 25, 2016 18:22
--- NOTE | 2016-08-25 18:25 | Progress Note ---
Subjective Subjective/Events-last exam Breathing easier. No shortness of breath at this time. Patient with no new complaints. Was transferred from ICU to floor today. Objective Exam Vital Signs Date Time Temp Pulse Resp B/P Pulse Ox O2 Delivery O2 Flow Rate FiO2 08/25/16 15:55 98.1 116 20 101/70 94 Room Air 08/25/16 12:28 122 08/25/16 12:00 98.3 120 20 107/68 95 Room Air 08/25/16 09:54 Room Air 08/25/16 09:35 96.9 120 20 91/71 95 Room Air 08/25/16 08:42 92 2.00 08/25/16 07:45 125 23 119/80 100 Room Air 08/25/16 07:00 102 08/25/16 06:00 112 20 100/81 100 Room Air 08/25/16 05:00 112 21 95/71 99 Room Air 08/25/16 04:00 105 23 104/73 99 Room Air 08/25/16 03:00 102 18 105/75 100 Room Air 08/25/16 02:00 106 18 95/72 100 Room Air 08/25/16 01:00 105 08/25/16 01:00 105 21 104/72 98 Room Air 08/25/16 00:00 98 20 105/80 99 Room Air 08/25/16 00:00 97.0 08/24/16 23:30 99 21 112/80 99 Nasal Cannula 2.00 08/24/16 23:00 102 21 110/83 96 Nasal Cannula 2.00 08/24/16 22:30 97 23 93/57 100 Nasal Cannula 2.00 08/24/16 22:00 100 21 107/60 100 Nasal Cannula 3.00 08/24/16 21:45 94 21 96/62 100 Nasal Cannula 3.00 08/24/16 21:30 94 21 113/79 100 Nasal Cannula 3.00 08/24/16 21:15 93 23 103/63 100 Nasal Cannula 3.00 08/24/16 21:01 2.00 08/24/16 21:00 96 13 92/64 97 Nasal Cannula 3.00 08/24/16 20:59 97 08/24/16 20:45 100 25 107/70 91 Nasal Cannula 3.00 08/24/16 20:41 97.8 101 20 115/71 87 Nasal Cannula 3.00 08/24/16 20:25 97.5 120 18 96 I & O 08/25/16 07:00 Intake Total 600 ml Output Total 1350 ml Balance -750 ml Capillary Refill : Less Than 3 Seconds General Appearance: No Apparent Distress WD/WN HEENT: PERRL/EOMI Normal ENT Inspection Pharynx Normal Neck: Full Range of Motion Normal Inspection Non Tender Supple Carotid Bruit Respiratory: Chest Non Tender No Accessory Muscle Use No Respiratory Distress Decreased Breath Sounds (decreased on the left) Cardiovascular: Regular Rate, Rhythm No Edema No Gallop No JVD No Murmur Normal Peripheral Pulses Gastrointestinal: non tender soft Extremity: Normal Capillary Refill Normal Inspection Normal Range of Motion Non Tender No Calf Tenderness No Pedal Edema Neurologic/Psychiatric: Alert Oriented x3 No Motor/Sensory Deficits Normal Mood/Affect Skin: Normal Color Warm/Dry Lymphatic: No Adenopathy Results Lab Bad table Assessment/Plan Assessment/Plan Assessment/Plan left pleural effusion, sepsis, hyponatremia large left pleural effusion s/p thoracentesis await result of cytology and cultures will continue to follow Clinical Quality Measures DVT/VTE Risk/Contraindication: Risk Factor Score Per Nursin RFS Level Per Nursing on Admit: 2=Moderate MARY ROE DO Aug 25, 2016 18:25
[2016-08-25] MEDS: LEVOFLOXACIN 750 MG/D5W 150 ML PRE-MIX IV SCH (22:14)
[2016-08-25] MEDS ORDERED: NICOTINE 21 MG (NICODERM) PATCH TD SCH (23:00)
[2016-08-26] VITALS (7 sets, daily range): BP systolic 102–112; BP diastolic 70–77
[2016-08-26] MEDS: CEFEPIME 2 GM/NS 50 ML IVPB IV SCH ×6 (00:28→23:42)
[2016-08-26] MEDS: NS IV 1000 ML 1,000 ML IV SCH (05:04)
[2016-08-26] MEDS: inSUlin ASPART (NovoLOG) 1 UNIT/0.01 ML (CHARGE PER UNIT) SC SCH ×4 (05:58→21:02)
[2016-08-26 06:35] LABS: BASOPHILS # (AUTO) 0.1 10^3/uL (0.0-0.1); BASOPHILS % (AUTO) 0 % (0-10); EOSINOPHILS # (AUTO) 0.4 10^3/uL (0.0-0.3); EOSINOPHILS % (AUTO) 2 % (0-10); LYMPHOCYTES # (AUTO) 1.6 X 10^3 (1.0-4.0); LYMPHOCYTES % (AUTO) 9 % (12-44); MEAN CORPUSCULAR HEMOGLOBIN 29 PG (25-34); MEAN CORPUSCULAR HGB CONC 36 G/DL (32-36); MEAN CORPUSCULAR VOLUME 79 FL (80-99); MEAN PLATELET VOLUME 9.8 FL (7.4-10.4); MONOCYTES # (AUTO) 1.9 X 10^3 (0.0-1.0); MONOCYTES % (AUTO) 11 % (0-12); NEUTROPHILS # (AUTO) 13.3 X 10^3 (1.8-7.8); NEUTROPHILS % (AUTO) 77 % (42-75); PLATELET COUNT 381 10^3/uL (130-400); RED CELL DISTRIBUTION WIDTH 13.6 % (10.0-14.5); WHITE BLOOD COUNT 17.2 10^3/uL (4.3-11.0)
[2016-08-26 06:52] LABS: ANION GAP 10 MMOL/L (5-14); BLOOD UREA NITROGEN 26 MG/DL (7-18); BUN/CREATININE RATIO 34; CALCIUM 7.8 MG/DL (8.5-10.1); CARBON DIOXIDE 18 MMOL/L (21-32); CHLORIDE 102 MMOL/L (98-107); CREATININE SERUM 0.77 MG/DL (0.60-1.30); GFR ESTIMATED > 60; GLUCOSE 128 MG/DL (70-105); PHOSPHORUS 1.7 MG/DL (2.3-4.7); POTASSIUM 4.4 MMOL/L (3.6-5.0); SODIUM 130 MMOL/L (135-145)
--- NOTE | 2016-08-26 07:36 | Pulmonary Progress Note ---
Subjective Subjective/Events-last exam No complications Exam Exam Vital Signs Date Time Temp Pulse Resp B/P Pulse Ox O2 Delivery O2 Flow Rate FiO2 08/26/16 07:09 3.50 08/26/16 04:00 98.0 111 18 103/73 97 Room Air 08/26/16 01:00 108 08/26/16 00:00 98.0 111 18 104/77 93 Room Air 08/25/16 21:00 Room Air 3.50 08/25/16 20:55 98.1 119 18 114/69 95 Nasal Cannula 3.50 08/25/16 20:01 86 3.50 08/25/16 19:00 111 08/25/16 15:55 98.1 116 20 101/70 94 Room Air 08/25/16 12:28 122 08/25/16 12:00 98.3 120 20 107/68 95 Room Air 08/25/16 09:54 Room Air 08/25/16 09:35 96.9 120 20 91/71 95 Room Air 08/25/16 08:42 92 2.00 08/25/16 07:45 125 23 119/80 100 Room Air I & O 08/26/16 07:00 Intake Total 2520 ml Output Total 450 ml Balance 2070 ml General Appearance: No Apparent Distress, WD/WN HEENT: PERRL/EOMI, Normal ENT Inspection, Pharynx Normal Neck: Full Range of Motion, Normal Inspection, Non Tender, Supple, Carotid Bruit Respiratory: Chest Non Tender, No Accessory Muscle Use, No Respiratory Distress , Decreased Breath Sounds (decreased on the left) Cardiovascular: Regular Rate, Rhythm, No Edema, No Gallop, No JVD, No Murmur, Normal Peripheral Pulses Capillary Refill: Less Than 3 Seconds Gastrointestinal: non tender, soft Extremity: Normal Capillary Refill, Normal Inspection, Normal Range of Motion, Non Tender, No Calf Tenderness, No Pedal Edema Neurologic/Psychiatric: Alert, Oriented x3, No Motor/Sensory Deficits, Normal Mood/Affect Skin: Normal Color, Warm/Dry Lymphatic: No Adenopathy Results Lab Laboratory Tests 08/24/16 16:00 08/25/16 03:25 08/26/16 05:54 Assessment/Plan Assessment/Plan Large left pleural effusion r/o cancer -- Exudative - -repeat CT of chest post thoracentesis - does not show lung mass -Await cytology from pleural fluid Dehydration with metabolic lactic acidosis -- Pt has been on metformin -- Pt states has not taken it for several days -Repeat liter bolus of NS Sepsis - -Continue current Abx -Rodriguez cultures Tobacco hx with probable COPD -Check out patient PFT -education Clinical Quality Measures DVT/VTE Risk/Contraindication: Risk Factor Score Per Nursin RFS Level Per Nursing on Admit: 2=Moderate TROY GROVES DO Aug 26, 2016 07:36
[2016-08-26] MEDS: PATCH REMOVAL TP SCH (08:38)
[2016-08-26] MEDS: NICOTINE 21 MG (NICODERM) PATCH TD SCH (08:38)
--- NOTE | 2016-08-26 08:44 | Diagnostic Imaging Report ---
INDICATION: Dyspnea, followup left pleural effusion. DISCUSSION: Single portable upright view of the chest was obtained, comparison 08/25/2016. Large left pleural effusion is increased from prior exam. There is compressive atelectasis within the left lung. Right lung is well-aerated. Heart borders are mostly obscured. IMPRESSION: 1. Enlarging large left pleural effusion. Dictated by: Dictated on workstation # [id number]
--- NOTE | 2016-08-26 09:49 | Progress Note-Hospitalist ---
Progress Note HPI/CC on Admission CC: SOB and weakness w/constipation HPI: This is a 56-year-old white male clinic patient of [facility] the presents to the emergency room with abdominal pain, shortness of breath and constipation for the last 1 week. He was found to have a severe large left- sided pleural effusion and Dr. Sen was consulted who performed thoracentesis and removed 3.7 L of fluid that has been sent to lab for evaluation. Repeat CT scan considering high suspicion of neoplastic process reveals residual infiltrate and pleural fluid that had been removed yesterday. Patient has been placed empirically on cefepime and Levaquin and nebulizer treatments and she denies any significant pain issues. He is being transferred to fourth floor and will be followed up closely for reaccumulation of pleural fluid. Progress Notes/Assess & Plan Date Seen 08/26/16 Admission Dx/Process Assessment: Left-sided pleural effusion status post thoracentesis uncomplicated by Dr. Sen removing 3.7 L of fluid analysis and labs pending Infiltrate noted on repeat CT scan status post thoracentesis empirically placed on cefepime and Levaquin COPD Current smoker Hypertension Chronic illness and debility Diagonsis/Assessment & Plan Patient is now more short of breath and chest x-ray reveals rapid reaccumulation of fluid Cytology still pending but appears to me to be malignant and Dr. Donis and Dr. Sen concur Does report abdominal pain since he still has not had a bowel movement and he is open to a soapsuds enema along with lactulose I explain the Pleurx catheter scenario it appears that there can be a pleurodesis through that catheter once placed Patient lives alone So uncomfortable he really can't walk around No fever, vital signs stable, chronically ill, thin Regular rate and rhythm, clear to auscultation bilaterally but diminished in the bases especially on left No edema Laboratory Tests 08/26/16 05:54 Assessment: Left-sided pleural effusion status post thoracentesis uncomplicated by Dr. Sen removing 3.7 L of fluid analysis and cytology pending But rapid accumulation will require repeat thoracentesis and/or Pleurx catheter placement in preparation for pleurodesis since it appears to be malignant in nature due to smoking status and hyponatremia Infiltrate noted on repeat CT scan status post thoracentesis empirically placed on cefepime and Levaquin COPD Current smoker Hypertension Chronic illness and debility severe constipation Plan: Maintain antibiotics Nebulizer treatments Oxygen Appreciate Dr. Donis's valuation and management Appreciate Dr. Sen service repeat thoracentesis and/or Pleurx catheter placement Constipation regimen DAWIT LOZANO DO Aug 26, 2016 09:49
[2016-08-26] MEDS ORDERED: MAGNESIUM CITRATE 300 ML BTL PO NR (10:00)
[2016-08-26] MEDS: LACTULOSE SYRUP 10GM/15ML (ENULOSE) 30ML UDC PO SCH ×2 (10:29→20:19)
[2016-08-26] MEDS: BISACODYL 5 MG (DULCOLAX) TABLET PO SCH ×2 (10:29→20:19)
[2016-08-26] MEDS: CATHETER FLUSH 10 ML SYR IV PRN (10:44)
--- NOTE | 2016-08-26 13:59 | RADIOLOGY REPORT ---
NAME: SHASTA SMITH [facility] REC#: [id number] PT STATUS: ADM IN : 1960 PHYSICIAN: BHARGAV PIERRE APRN ADMIT DATE: 08/24/16/ICU Signed Date of Exam:08/24/16 CHEST: Ernie for thoracentesis EXAMINATION: Sonographic imaging of the left chest. INDICATION: Left pleural effusion. FINDINGS: Sonographic images demonstrate large left-sided pleural effusion. This is smaller on the post thoracentesis images. IMPRESSION: Sonographic imaging utilized during left sided thoracentesis. Dictated by: Dictated on workstation # [id number] Dict: 08/24/161946 Trans: 08/24/16 2014 [id number] Interpreted by: CHANDA LEARY MD Electronically signed by: CHANDA LEARY MD 08/24/16 2016 MTDD
--- NOTE | 2016-08-26 14:29 | Progress Note ---
Subjective Subjective/Events-last exam Patient breathing about the same as yesterday. Having bowel movement. Abdomen feels good today. Chest x ray shows slightly enlarging left pleural effusion. Denies n/v fever sweats chills shortness of breath or chest pain. Objective Exam Vital Signs Date Time Temp Pulse Resp B/P Pulse Ox O2 Delivery O2 Flow Rate FiO2 08/26/16 12:23 98.6 98 18 112/76 99 Room Air 08/26/16 08:00 Room Air 3.50 08/26/16 07:46 98.1 109 18 107/70 96 Room Air 08/26/16 07:09 3.50 08/26/16 07:00 109 08/26/16 04:00 98.0 111 18 103/73 97 Room Air 08/26/16 01:00 108 08/26/16 00:00 98.0 111 18 104/77 93 Room Air 08/25/16 21:00 Room Air 3.50 08/25/16 20:55 98.1 119 18 114/69 95 Nasal Cannula 3.50 08/25/16 20:01 86 3.50 08/25/16 19:00 111 08/25/16 15:55 98.1 116 20 101/70 94 Room Air I & O 08/26/16 07:00 Intake Total 3720 ml Output Total 450 ml Balance 3270 ml Capillary Refill : Less Than 3 Seconds General Appearance: No Apparent Distress WD/WN HEENT: PERRL/EOMI Normal ENT Inspection Pharynx Normal Neck: Full Range of Motion Normal Inspection Non Tender Supple Carotid Bruit Respiratory: Chest Non Tender No Accessory Muscle Use No Respiratory Distress Decreased Breath Sounds (left decreased breath sounds) Cardiovascular: Regular Rate, Rhythm No Edema No Gallop No JVD No Murmur Normal Peripheral Pulses Gastrointestinal: non tender soft Extremity: Normal Capillary Refill Normal Inspection Normal Range of Motion Non Tender No Calf Tenderness No Pedal Edema Neurologic/Psychiatric: Alert Oriented x3 No Motor/Sensory Deficits Normal Mood/Affect Skin: Normal Color Warm/Dry Lymphatic: No Adenopathy Results Lab Laboratory Tests 08/25/16 15:58: Glucometer 161H 08/25/16 20:58: Glucometer 145H 08/26/16 05:54: Anion Gap 10, BUN/Creatinine Ratio 34, Basophils # (Auto) 0.1, Basophils (%) ( Auto) 0, Blood Urea Nitrogen 26H, Calcium Level 7.8L, Carbon Dioxide Level 18L, Chloride Level 102, Creatinine 0.77, Eosinophils # (Auto) 0.4H, Eosinophils (%) (Auto) 2, Estimat Glomerular Filtration Rate > 60, Glucose Level 128H, Hematocrit 45, Hemoglobin 16.4, Lymphocytes # (Auto) 1.6, Lymphocytes (%) (Auto ) 9L, Magnesium Level 2.0, Mean Corpuscular Hemoglobin 29, Mean Corpuscular Hemoglobin Concent 36, Mean Corpuscular Volume 79L, Mean Platelet Volume 9.8, Monocytes # (Auto) 1.9H, Monocytes (%) (Auto) 11, Neutrophils # (Auto) 13.3H, Neutrophils (%) (Auto) 77H, Phosphorus Level 1.7L, Platelet Count 381, Potassium Level 4.4, Red Blood Count 5.70, Red Cell Distribution Width 13.6, Sodium Level 130L, White Blood Count 17.2H 08/26/16 05:57: Glucometer 128H 08/26/16 11:06: Glucometer 184H Microbiology 08/24/16 Blood Culture - Preliminary, Resulted No growth 08/24/16 Gram Stain - Final, Resulted 08/24/16 Body Fluid Culture - Preliminary, Resulted No growth 08/24/16 Anaerobic Culture - Preliminary, Resulted No growth 08/24/16 Fungal Culture, Resulted Pending Assessment/Plan Assessment/Plan Assessment/Plan left pleural effusion, sepsis, hyponatremia large left pleural effusion-recurring s/p thoracentesis await result of cytology and cultures slightly worsening left pleural effusion. Discussed with Dr. Bailon and Jewels about pleur-x cather insertion for continue drainage. Will tentatively plan on to place if everyone is in continued agreement that it will benefit patient. If not placed will at least need repeat thoracentesis Clinical Quality Measures DVT/VTE Risk/Contraindication: Risk Factor Score Per Nursin RFS Level Per Nursing on Admit: 2=Moderate MARY ROE DO Aug 26, 2016 14:29
[2016-08-26] MEDS: LEVOFLOXACIN 750 MG/D5W 150 ML PRE-MIX IV SCH (20:18)
[2016-08-27 05:29] LABS: BASOPHILS # (AUTO) 0.1 10^3/uL (0.0-0.1); BASOPHILS % (AUTO) 0 % (0-10); EOSINOPHILS # (AUTO) 0.2 10^3/uL (0.0-0.3); EOSINOPHILS % (AUTO) 1 % (0-10); LYMPHOCYTES # (AUTO) 1.7 X 10^3 (1.0-4.0); LYMPHOCYTES % (AUTO) 8 % (12-44); MEAN CORPUSCULAR HEMOGLOBIN 29 PG (25-34); MEAN CORPUSCULAR HGB CONC 37 G/DL (32-36); MEAN CORPUSCULAR VOLUME 79 FL (80-99); MEAN PLATELET VOLUME 10.1 FL (7.4-10.4); MONOCYTES # (AUTO) 2.2 X 10^3 (0.0-1.0); MONOCYTES % (AUTO) 10 % (0-12); NEUTROPHILS # (AUTO) 17.5 X 10^3 (1.8-7.8); NEUTROPHILS % (AUTO) 81 % (42-75); PLATELET COUNT 402 10^3/uL (130-400); RED BLOOD COUNT 5.74 10^6/uL (4.35-5.85); RED CELL DISTRIBUTION WIDTH 13.9 % (10.0-14.5); WHITE BLOOD COUNT 21.7 10^3/uL (4.3-11.0)
[2016-08-27 05:52] LABS: ANION GAP 8 MMOL/L (5-14); BLOOD UREA NITROGEN 25 MG/DL (7-18); BUN/CREATININE RATIO 37; CARBON DIOXIDE 19 MMOL/L (21-32); CHLORIDE 101 MMOL/L (98-107); CREATININE SERUM 0.67 MG/DL (0.60-1.30); GFR ESTIMATED > 60; GLUCOSE 153 MG/DL (70-105); MAGNESIUM 2.2 MG/DL (1.8-2.4); PHOSPHORUS 1.9 MG/DL (2.3-4.7); POTASSIUM 4.5 MMOL/L (3.6-5.0); SODIUM 128 MMOL/L (135-145)
[2016-08-27] MEDS: inSUlin ASPART (NovoLOG) 1 UNIT/0.01 ML (CHARGE PER UNIT) SC SCH ×4 (06:00→21:08)
[2016-08-27 06:21] LABS: ANISOCYTOSIS SLIGHT; BAND NEUTROPHILS 0 %; BASOPHILS % (MANUAL) 0 %; EOSINOPHILS % (MANUAL) 0 %; LYMPHOCYTES % (MANUAL) 5 %; NEUTROPHILS % (MANUAL) 78 %; REACTIVE LYMPHOCYTES 10 %
--- NOTE | 2016-08-27 06:47 | Pulmonary Progress Note ---
Subjective Subjective/Events-last exam no complications noted Exam Exam Vital Signs Date Time Temp Pulse Resp B/P (MAP) Pulse Ox O2 Delivery O2 Flow Rate FiO2 08/26/16 23:18 97.5 125 21 102/73 94 Room Air 08/26/16 21:00 Room Air 3.50 08/26/16 19:35 97.7 120 24 107/72 94 Room Air 08/26/16 15:55 98.7 113 22 108/72 94 Room Air 08/26/16 12:23 98.6 98 18 112/76 99 Room Air 08/26/16 08:00 Room Air 3.50 08/26/16 07:46 98.1 109 18 107/70 96 Room Air 08/26/16 07:09 3.50 08/26/16 07:00 109 I & O 08/27/16 07:00 Intake Total 2130 ml Output Total 1350 ml Balance 780 ml General Appearance: No Apparent Distress, WD/WN HEENT: PERRL/EOMI, Normal ENT Inspection, Pharynx Normal Neck: Full Range of Motion, Normal Inspection, Non Tender, Supple, Carotid Bruit Respiratory: Chest Non Tender, No Accessory Muscle Use, No Respiratory Distress , Decreased Breath Sounds (left decreased breath sounds) Cardiovascular: Regular Rate, Rhythm, No Edema, No Gallop, No JVD, No Murmur, Normal Peripheral Pulses Capillary Refill: Less Than 3 Seconds Gastrointestinal: non tender, soft Extremity: Normal Capillary Refill, Normal Inspection, Normal Range of Motion, Non Tender, No Calf Tenderness, No Pedal Edema Neurologic/Psychiatric: Alert, Oriented x3, No Motor/Sensory Deficits, Normal Mood/Affect Skin: Normal Color, Warm/Dry Lymphatic: No Adenopathy Results Lab Laboratory Tests 08/26/16 05:54 08/27/16 04:15 Assessment/Plan Assessment/Plan Large left pleural effusion r/o cancer -- Exudative - -rapid reaccumulation of pleural fluid -- Dr. Sen is planning Pleurx catheter placement -Await cytology from pleural fluid Sepsis - -cefepime, Levaquin -Rodriguez cultures pending Tobacco hx with probable COPD -Check out patient PFT -education Clinical Quality Measures DVT/VTE Risk/Contraindication: Risk Factor Score Per Nursin RFS Level Per Nursing on Admit: 2=Moderate TROY GROVES DO Aug 27, 2016 06:47
[2016-08-27 08:00] VITALS: BP 108/73
--- NOTE | 2016-08-27 08:38 | Diagnostic Imaging Report ---
EXAMINATION: Portable upright radiograph of the chest. INDICATION: Left pleural effusion. COMPARISON: 08/26/2016. FINDINGS: There is interval further enlargement of the left pleural effusion with an obscured opacified left lower lobe and a largely opacified and atelectatic left upper lobe as well. There is shift of the mediastinum and heart to the right side. The right lung is clear. No right pleural effusion. No pneumothorax. IMPRESSION: Worsening large left pleural effusion with minimal remaining aeration of the medial left upper lung. Dictated by: Dictated on workstation # [id number]
[2016-08-27] MEDS: PATCH REMOVAL TP SCH (10:19)
[2016-08-27] MEDS: BISACODYL 5 MG (DULCOLAX) TABLET PO SCH ×2 (10:19→21:00)
[2016-08-27] MEDS: NICOTINE 21 MG (NICODERM) PATCH TD SCH (10:19)
[2016-08-27] MEDS: LACTULOSE SYRUP 10GM/15ML (ENULOSE) 30ML UDC PO SCH ×2 (10:19→21:00)
--- NOTE | 2016-08-27 11:10 | Progress Note-Hospitalist ---
Progress Note HPI/CC on Admission CC: SOB and weakness w/constipation HPI: This is a 56-year-old white male clinic patient of [facility] the presents to the emergency room with abdominal pain, shortness of breath and constipation for the last 1 week. He was found to have a severe large left- sided pleural effusion and Dr. Sen was consulted who performed thoracentesis and removed 3.7 L of fluid that has been sent to lab for evaluation. Repeat CT scan considering high suspicion of neoplastic process reveals residual infiltrate and pleural fluid that had been removed yesterday. Patient has been placed empirically on cefepime and Levaquin and nebulizer treatments and she denies any significant pain issues. He is being transferred to fourth floor and will be followed up closely for reaccumulation of pleural fluid. Progress Notes/Assess & Plan Date Seen 08/27/16 Admission Dx/Process Assessment: Left-sided pleural effusion status post thoracentesis uncomplicated by Dr. Sen removing 3.7 L of fluid analysis and labs pending Infiltrate noted on repeat CT scan status post thoracentesis empirically placed on cefepime and Levaquin COPD Current smoker Hypertension Chronic illness and debility Diagonsis/Assessment & Plan Chart Review: No fever Vitals stable but HR 125 WBC up to 21.7 Platelets 402k Na+ up to 128 Blood sugars 150-200 CXR worsening left pleural effusion - Cytology of pleural fluid shows no malignant cells Patient Interview: Pt states that he feels well, but has trouble breathing. Pt states that he will likely have a catheter placed tomorrow morning. Pt states that he now has normal BMs after the enema. Pt states that his urinary output is reduced today. Physical exam stable. No fever, vital signs stable, chronically ill, thin Regular rate and rhythm, clear to auscultation bilaterally but diminished in the bases especially on left No edema Assessment: Left-sided pleural effusion status post thoracentesis uncomplicated by Dr. Sen removing 3.7 L of fluid analysis and cytology negative for malignancy but rapid accumulation will require Pleurx catheter placement tomorrow Infiltrate noted on repeat CT scan status post thoracentesis empirically placed on cefepime and Levaquin COPD Current smoker Hypertension Chronic illness and debility severe constipation s/p resolution after SSE Plan: Catheter placement tomorrow Maintain antibiotics Nebulizer treatments Oxygen Appreciate Dr. Donis's valuation and management Appreciate Dr. Sen service Scribed by Lorenzo Varma under the direct supervision of Dr. Lozano. DAWIT LOZANO DO Aug 27, 2016 11:10
[2016-08-27] MEDS: CEFEPIME 2 GM/NS 50 ML IVPB IV SCH ×4 (11:41→23:56)
[2016-08-27] MEDS: CATHETER FLUSH 10 ML SYR IV PRN (11:41)
[2016-08-27] MEDS: fentaNYL INJECTION 100 MCG/2 ML AMP IV PRN ×2 (12:12→21:19)
[2016-08-27] MEDS: RT-ALBUTEROL/IPRATROPIUM 3 ML (DUONEB) VIAL INH SCH ×2 (14:58→19:45)
[2016-08-27 16:05] VITALS: BP 110/79
--- NOTE | 2016-08-27 17:31 | Progress Note ---
Subjective Subjective/Events-last exam Breathing about the same to maybe worse a little. Having a little back pain, but feels this is due to the breathing. chest x ray showing reaccumulation of fluid in left chest. Denies any n/v fever chills chest pain. Objective Exam Vital Signs Date Time Temp Pulse Resp B/P (MAP) Pulse Ox O2 Delivery O2 Flow Rate FiO2 08/27/16 15:00 94 08/27/16 10:58 94 08/27/16 10:54 94 08/27/16 08:00 97.3 122 18 108/73 98 Room Air 08/26/16 23:18 97.5 125 21 102/73 94 Room Air 08/26/16 21:00 Room Air 3.50 08/26/16 19:35 97.7 120 24 107/72 94 Room Air I & O 08/27/16 07:00 Intake Total 2330 ml Output Total 1350 ml Balance 980 ml Capillary Refill : Less Than 3 Seconds General Appearance: No Apparent Distress, WD/WN HEENT: PERRL/EOMI, Normal ENT Inspection, Pharynx Normal Neck: Full Range of Motion, Normal Inspection, Non Tender, Supple, Carotid Bruit Respiratory: Chest Non Tender, No Accessory Muscle Use, No Respiratory Distress , Decreased Breath Sounds (left decreased breath sounds) Cardiovascular: Regular Rate, Rhythm, No Edema, No Gallop, No JVD, No Murmur, Normal Peripheral Pulses Gastrointestinal: non tender, soft Extremity: Normal Capillary Refill, Normal Inspection, Normal Range of Motion, Non Tender, No Calf Tenderness, No Pedal Edema Neurologic/Psychiatric: Alert, Oriented x3, No Motor/Sensory Deficits, Normal Mood/Affect Skin: Normal Color, Warm/Dry Lymphatic: No Adenopathy Results Lab Laboratory Tests 08/26/16 20:53: Glucometer 291H 08/27/16 04:15: White Blood Count 21.7H, Red Blood Count 5.74, Hemoglobin 16.6, Hematocrit 45, Mean Corpuscular Volume 79L, Mean Corpuscular Hemoglobin 29, Mean Corpuscular Hemoglobin Concent 37H, Red Cell Distribution Width 13.9, Platelet Count 402H, Mean Platelet Volume 10.1, Neutrophils (%) (Auto) 81H, Lymphocytes (%) (Auto) 8L , Monocytes (%) (Auto) 10, Eosinophils (%) (Auto) 1, Basophils (%) (Auto) 0, Neutrophils # (Auto) 17.5H, Lymphocytes # (Auto) 1.7, Monocytes # (Auto) 2.2H, Eosinophils # (Auto) 0.2, Basophils # (Auto) 0.1, Neutrophils % (Manual) 78, Lymphocytes % (Manual) 5, Monocytes % (Manual) 7, Eosinophils % (Manual) 0, Basophils % (Manual) 0, Band Neutrophils 0, Reactive Lymphocytes 10, Anisocytosis SLIGHT, Sodium Level 128L, Potassium Level 4.5, Chloride Level 101 , Carbon Dioxide Level 19L, Anion Gap 8, Blood Urea Nitrogen 25H, Creatinine 0.67, Estimat Glomerular Filtration Rate > 60, BUN/Creatinine Ratio 37, Glucose Level 153H, Calcium Level 8.0L, Phosphorus Level 1.9L, Magnesium Level 2.2 08/27/16 11:36: Glucometer 201H 08/27/16 16:02: Glucometer 246H Microbiology 08/24/16 Blood Culture - Preliminary, Resulted No growth 08/24/16 Gram Stain - Final, Resulted 08/24/16 Body Fluid Culture - Preliminary, Resulted No growth 08/24/16 Anaerobic Culture - Preliminary, Resulted No growth 08/24/16 Fungal Culture, Resulted Pending Assessment/Plan Assessment/Plan Assessment/Plan left pleural effusion, sepsis, hyponatremia large left pleural effusion-recurring s/p thoracentesis Discussed with Dr. Bailon and Jewels about pleur-x catheter insertion for continued drainage. All are in agreement with placement of pleur-x catheter discussed risks and benefits of procedure and patient agrees with plan. to or tomorrow Clinical Quality Measures DVT/VTE Risk/Contraindication: Risk Factor Score Per Nursin RFS Level Per Nursing on Admit: 2=Moderate MARY ROE DO Aug 27, 2016 17:31
[2016-08-27 19:05] VITALS: BP 118/85
[2016-08-27] MEDS: LEVOFLOXACIN 750 MG/D5W 150 ML PRE-MIX IV SCH (21:08)
[2016-08-28] VITALS (11 sets, daily range): BP systolic 102–128; BP diastolic 65–95
[2016-08-28] MEDS: inSUlin ASPART (NovoLOG) 1 UNIT/0.01 ML (CHARGE PER UNIT) SC SCH ×5 (06:00→21:00)
[2016-08-28 06:37] LABS: BASOPHILS # (AUTO) 0.1 10^3/uL (0.0-0.1); BASOPHILS % (AUTO) 0 % (0-10); EOSINOPHILS % (AUTO) 0 % (0-10); LYMPHOCYTES # (AUTO) 1.5 X 10^3 (1.0-4.0); LYMPHOCYTES % (AUTO) 4 % (12-44); MEAN CORPUSCULAR HEMOGLOBIN 28 PG (25-34); MEAN CORPUSCULAR HGB CONC 36 G/DL (32-36); MEAN CORPUSCULAR VOLUME 79 FL (80-99); MEAN PLATELET VOLUME 9.7 FL (7.4-10.4); MONOCYTES # (AUTO) 2.8 X 10^3 (0.0-1.0); MONOCYTES % (AUTO) 8 % (0-12); NEUTROPHILS # (AUTO) 30.4 X 10^3 (1.8-7.8); NEUTROPHILS % (AUTO) 87 % (42-75); PLATELET COUNT 482 10^3/uL (130-400); RED BLOOD COUNT 6.47 10^6/uL (4.35-5.85); RED CELL DISTRIBUTION WIDTH 14.8 % (10.0-14.5)
[2016-08-28 06:50] LABS: WHITE BLOOD COUNT 34.7 10^3/uL (4.3-11.0)
[2016-08-28 07:03] LABS: ALANINE AMINOTRANSFERASE 26 U/L (0-55); ALBUMIN 3.2 G/DL (3.2-4.5); ANION GAP 18 MMOL/L (5-14); ASPARTATE AMINO TRANSFERASE 18 U/L (5-34); BILIRUBIN,TOTAL 0.5 MG/DL (0.1-1.0); BLOOD UREA NITROGEN 35 MG/DL (7-18); BUN/CREATININE RATIO 34; CALCIUM 9.2 MG/DL (8.5-10.1); CARBON DIOXIDE 13 MMOL/L (21-32); CHLORIDE 96 MMOL/L (98-107); CREATININE SERUM 1.03 MG/DL (0.60-1.30); GFR ESTIMATED > 60; GLUCOSE 266 MG/DL (70-105); MAGNESIUM 2.3 MG/DL (1.8-2.4); PHOSPHORUS 3.8 MG/DL (2.3-4.7); POTASSIUM 4.9 MMOL/L (3.6-5.0); SODIUM 127 MMOL/L (135-145); TOTAL PROTEIN 5.7 G/DL (6.4-8.2)
[2016-08-28 07:20] LABS: BAND NEUTROPHILS 0 %; BASOPHILS % (MANUAL) 0 %; EOSINOPHILS % (MANUAL) 0 %; LYMPHOCYTES % (MANUAL) 6 %; NEUTROPHILS % (MANUAL) 87 %
[2016-08-28] MEDS: RT-ALBUTEROL/IPRATROPIUM 3 ML (DUONEB) VIAL INH SCH ×3 (08:24→18:19)
--- NOTE | 2016-08-28 08:34 | Pulmonary Progress Note ---
Subjective Subjective/Events-last exam No complications noted Exam Exam Vital Signs Date Time Temp Pulse Resp B/P (MAP) Pulse Ox O2 Delivery O2 Flow Rate FiO2 08/28/16 00:00 96.3 100 22 117/79 94 Room Air 08/27/16 21:10 Room Air 08/27/16 19:45 94 3.50 08/27/16 19:05 96.5 116 22 118/85 95 Room Air 08/27/16 16:05 97.3 94 22 110/79 95 Room Air 08/27/16 15:00 94 08/27/16 10:58 94 08/27/16 10:54 94 08/27/16 09:00 94 Room Air I & O 08/28/16 07:00 Intake Total 1200 ml Output Total 400 ml Balance 800 ml General Appearance: No Apparent Distress, WD/WN HEENT: PERRL/EOMI, Normal ENT Inspection, Pharynx Normal Neck: Full Range of Motion, Normal Inspection, Non Tender, Supple, Carotid Bruit Respiratory: Chest Non Tender, No Accessory Muscle Use, No Respiratory Distress , Decreased Breath Sounds (left decreased breath sounds) Cardiovascular: Regular Rate, Rhythm, No Edema, No Gallop, No JVD, No Murmur, Normal Peripheral Pulses Capillary Refill: Less Than 3 Seconds Gastrointestinal: non tender, soft Extremity: Normal Capillary Refill, Normal Inspection, Normal Range of Motion, Non Tender, No Calf Tenderness, No Pedal Edema Neurologic/Psychiatric: Alert, Oriented x3, No Motor/Sensory Deficits, Normal Mood/Affect Skin: Normal Color, Warm/Dry Lymphatic: No Adenopathy Results Lab Laboratory Tests 08/27/16 04:15 08/28/16 05:50 Assessment/Plan Assessment/Plan Large left pleural effusion r/o cancer -- Exudative - -rapid reaccumulation of pleural fluid -- Dr. Sen is planning Pleurx catheter placement - cytology from pleural fluid is negative -- will repeat Sepsis - -cefepime, Levaquin -Rodriguez cultures negative Tobacco hx with probable COPD -Check out patient PFT -education Clinical Quality Measures DVT/VTE Risk/Contraindication: Risk Factor Score Per Nursin RFS Level Per Nursing on Admit: 2=Moderate TROY GROVES DO Aug 28, 2016 08:34
[2016-08-28] MEDS: LACTULOSE SYRUP 10GM/15ML (ENULOSE) 30ML UDC PO SCH ×2 (08:42→21:00)
[2016-08-28] MEDS: BISACODYL 5 MG (DULCOLAX) TABLET PO SCH ×2 (08:42→21:00)
[2016-08-28] MEDS: fentaNYL INJECTION 100 MCG/2 ML AMP IV PRN (08:53)
[2016-08-28] MEDS ORDERED: LORazepam INJ 2 MG/ML (ATIVAN) VIAL IVP PRN (09:15)
[2016-08-28] MEDS: NICOTINE 21 MG (NICODERM) PATCH TD SCH (09:20)
[2016-08-28] MEDS: PATCH REMOVAL TP SCH (09:21)
--- NOTE | 2016-08-28 09:28 | Diagnostic Imaging Report ---
INDICATION: Large left pleural effusion, hyponatremia, sepsis. FINDINGS: A portable upright view of the chest again demonstrates a large left pleural effusion with near-complete opacification of the left lung. The mediastinum is somewhat shifted to the right. The right lung is clear. The vascularity is normal. IMPRESSION: Stable large left pleural effusion with shift of the mediastinum to the right. Dictated by: Dictated on workstation # [id number]
--- NOTE | 2016-08-28 09:33 | Progress Note ---
Subjective Subjective/Events-last exam Patient in bed. Short of air after shower. Alert and oriented x 3. Respiratory therapist in room assessing patient too. Objective Exam Vital Signs Date Time Temp Pulse Resp B/P (MAP) Pulse Ox O2 Delivery O2 Flow Rate FiO2 08/28/16 08:50 74 38 95 85.00 08/28/16 08:44 94.0 135 28 127/76 08/28/16 08:24 91 3.50 08/28/16 00:00 96.3 100 22 117/79 94 Room Air 08/27/16 21:10 Room Air 08/27/16 19:45 94 3.50 08/27/16 19:05 96.5 116 22 118/85 95 Room Air 08/27/16 16:05 97.3 94 22 110/79 95 Room Air 08/27/16 15:00 94 08/27/16 10:58 94 08/27/16 10:54 94 I & O 08/28/16 07:00 Intake Total 1200 ml Output Total 400 ml Balance 800 ml Capillary Refill : Less Than 3 Seconds General Appearance: No Apparent Distress, WD/WN HEENT: PERRL/EOMI, Normal ENT Inspection, Pharynx Normal Neck: Full Range of Motion, Normal Inspection, Non Tender, Supple, Carotid Bruit Respiratory: Chest Non Tender, Decreased Breath Sounds (left significantly decreased breath sounds), Wheezing (right lung) Cardiovascular: Normal Peripheral Pulses, Tachycardia Gastrointestinal: non tender, soft Extremity: Normal Capillary Refill, Normal Inspection, Normal Range of Motion, Non Tender, No Calf Tenderness, No Pedal Edema Neurologic/Psychiatric: Alert, Oriented x3, No Motor/Sensory Deficits, Normal Mood/Affect Skin: Normal Color, Warm/Dry Lymphatic: No Adenopathy Results Lab Laboratory Tests Test 08/26/16 11:06 08/26/16 15:48 08/26/16 20:53 08/27/16 04:15 Range/Units Glucometer 184 H 143 H 291 H 70-110 MG/DL White Blood Count 21.7 H 4.3-11.0 10^3/uL Red Blood Count 5.74 4.35-5.85 10^6/uL Hemoglobin 16.6 13.3-17.7 G/DL Hematocrit 45 40-54 % Mean Corpuscular Volume 79 L 80-99 FL Mean Corpuscular Hemoglobin 29 25-34 PG Mean Corpuscular Hemoglobin Concent 37 H 32-36 G/DL Red Cell Distribution Width 13.9 10.0-14.5 % Platelet Count 402 H 130-400 10^3/uL Mean Platelet Volume 10.1 7.4-10.4 FL Neutrophils (%) (Auto) 81 H 42-75 % Lymphocytes (%) (Auto) 8 L 12-44 % Monocytes (%) (Auto) 10 0-12 % Eosinophils (%) (Auto) 1 0-10 % Basophils (%) (Auto) 0 0-10 % Neutrophils # (Auto) 17.5 H 1.8-7.8 X 10^3 Lymphocytes # (Auto) 1.7 1.0-4.0 X 10^3 Monocytes # (Auto) 2.2 H 0.0-1.0 X 10^3 Eosinophils # (Auto) 0.2 0.0-0.3 10^3/uL Basophils # (Auto) 0.1 0.0-0.1 10^3/uL Neutrophils % (Manual) 78 % Lymphocytes % (Manual) 5 % Monocytes % (Manual) 7 % Eosinophils % (Manual) 0 % Basophils % (Manual) 0 % Band Neutrophils 0 % Reactive Lymphocytes 10 % Anisocytosis SLIGHT Sodium Level 128 L 135-145 MMOL/L Potassium Level 4.5 3.6-5.0 MMOL/L Chloride Level 101 98-107 MMOL/L Carbon Dioxide Level 19 L 21-32 MMOL/L Anion Gap 8 5-14 MMOL/L Blood Urea Nitrogen 25 H 7-18 MG/DL Creatinine 0.67 0.60-1.30 MG/DL Estimat Glomerular Filtration Rate > 60 BUN/Creatinine Ratio 37 Glucose Level 153 H 70-105 MG/DL Calcium Level 8.0 L 8.5-10.1 MG/DL Phosphorus Level 1.9 L 2.3-4.7 MG/DL Magnesium Level 2.2 1.8-2.4 MG/DL Test 08/27/16 11:36 08/27/16 16:02 08/27/16 20:50 08/28/16 05:50 Range/Units Glucometer 201 H 246 H 237 H 70-110 MG/DL White Blood Count 34.7 *H 4.3-11.0 10^3/uL Red Blood Count 6.47 H 4.35-5.85 10^6/uL Hemoglobin 18.4 H 13.3-17.7 G/DL Hematocrit 51 40-54 % Mean Corpuscular Volume 79 L 80-99 FL Mean Corpuscular Hemoglobin 28 25-34 PG Mean Corpuscular Hemoglobin Concent 36 32-36 G/DL Red Cell Distribution Width 14.8 H 10.0-14.5 % Platelet Count 482 H 130-400 10^3/uL Mean Platelet Volume 9.7 7.4-10.4 FL Neutrophils (%) (Auto) 87 H 42-75 % Lymphocytes (%) (Auto) 4 L 12-44 % Monocytes (%) (Auto) 8 0-12 % Eosinophils (%) (Auto) 0 0-10 % Basophils (%) (Auto) 0 0-10 % Neutrophils # (Auto) 30.4 H 1.8-7.8 X 10^3 Lymphocytes # (Auto) 1.5 1.0-4.0 X 10^3 Monocytes # (Auto) 2.8 H 0.0-1.0 X 10^3 Eosinophils # (Auto) 0.0 0.0-0.3 10^3/uL Basophils # (Auto) 0.1 0.0-0.1 10^3/uL Neutrophils % (Manual) 87 % Lymphocytes % (Manual) 6 % Monocytes % (Manual) 7 % Eosinophils % (Manual) 0 % Basophils % (Manual) 0 % Band Neutrophils 0 % Toxic Granulation 1+ Blood Morphology Comment NORMAL Sodium Level 127 L 135-145 MMOL/L Potassium Level 4.9 3.6-5.0 MMOL/L Chloride Level 96 L 98-107 MMOL/L Carbon Dioxide Level 13 L 21-32 MMOL/L Anion Gap 18 H 5-14 MMOL/L Blood Urea Nitrogen 35 H 7-18 MG/DL Creatinine 1.03 0.60-1.30 MG/DL Estimat Glomerular Filtration Rate > 60 BUN/Creatinine Ratio 34 Glucose Level 266 H 70-105 MG/DL Calcium Level 9.2 8.5-10.1 MG/DL Phosphorus Level 3.8 2.3-4.7 MG/DL Magnesium Level 2.3 1.8-2.4 MG/DL Total Bilirubin 0.5 0.1-1.0 MG/DL Aspartate Amino Transf (AST/SGOT) 18 5-34 U/L Alanine Aminotransferase (ALT/SGPT) 26 0-55 U/L Alkaline Phosphatase 84 40-136 U/L Total Protein 5.7 L 6.4-8.2 G/DL Albumin 3.2 3.2-4.5 G/DL Test 08/28/16 05:59 Range/Units Glucometer 255 H 70-110 MG/DL Laboratory Tests 08/27/16 11:36: Glucometer 201H 08/27/16 16:02: Glucometer 246H 08/27/16 20:50: Glucometer 237H 08/28/16 05:50: White Blood Count 34.7*H, Red Blood Count 6.47H, Hemoglobin 18.4H, Hematocrit 51 , Mean Corpuscular Volume 79L, Mean Corpuscular Hemoglobin 28, Mean Corpuscular Hemoglobin Concent 36, Red Cell Distribution Width 14.8H, Platelet Count 482H, Mean Platelet Volume 9.7, Neutrophils (%) (Auto) 87H, Lymphocytes (%) (Auto) 4L , Monocytes (%) (Auto) 8, Eosinophils (%) (Auto) 0, Basophils (%) (Auto) 0, Neutrophils # (Auto) 30.4H, Lymphocytes # (Auto) 1.5, Monocytes # (Auto) 2.8H, Eosinophils # (Auto) 0.0, Basophils # (Auto) 0.1, Neutrophils % (Manual) 87, Lymphocytes % (Manual) 6, Monocytes % (Manual) 7, Eosinophils % (Manual) 0, Basophils % (Manual) 0, Band Neutrophils 0, Toxic Granulation 1+, Blood Morphology Comment NORMAL, Sodium Level 127L, Potassium Level 4.9, Chloride Level 96L, Carbon Dioxide Level 13L, Anion Gap 18H, Blood Urea Nitrogen 35H, Creatinine 1.03, Estimat Glomerular Filtration Rate > 60, BUN/Creatinine Ratio 34, Glucose Level 266H, Calcium Level 9.2, Phosphorus Level 3.8, Magnesium Level 2.3, Total Bilirubin 0.5, Aspartate Amino Transf (AST/SGOT) 18, Alanine Aminotransferase (ALT/SGPT) 26, Alkaline Phosphatase 84, Total Protein 5.7L, Albumin 3.2 08/28/16 05:59: Glucometer 255H Microbiology 08/24/16 Blood Culture - Preliminary, Resulted No growth 08/24/16 Gram Stain - Final, Resulted 08/24/16 Body Fluid Culture - Preliminary, Resulted No growth 08/24/16 Anaerobic Culture - Preliminary, Resulted No growth 08/24/16 Fungal Culture, Resulted Pending Assessment/Plan Assessment/Plan Assessment/Plan left pleural effusion, sepsis, hyponatremia large left pleural effusion-recurring s/p thoracentesis Leukocytosis WBC elevated Pt to be taken to ICU. Pleur-X Cath to place in ICU. Francy- patient on bi-pap and short of air. Moved to icu Patient to have pleur-x catheter placed at bedside. Patient understands risks and benefits. decreased breath sounds on left. agree with assessment and plan above. Clinical Quality Measures DVT/VTE Risk/Contraindication: Risk Factor Score Per Nursin RFS Level Per Nursing on Admit: 2=Moderate KEVIN PÉREZ APRN Aug 28, 2016 9:33 am MARY ROE DO Aug 28, 2016 10:23 am
[2016-08-28] MEDS ORDERED: MIDAZOLAM 5 MG/5 ML (VERSED) VIAL ONE (09:47)
[2016-08-28] MEDS ORDERED: fentaNYL INJECTION 100 MCG/2 ML AMP ONE (09:48)
[2016-08-28] MEDS ORDERED: NS IV 1000 ML 1,000 ML ONE ×2 (09:56→19:45)
--- NOTE | 2016-08-28 10:32 | Progress Note-Hospitalist ---
Progress Note HPI/CC on Admission CC: SOB and weakness w/constipation HPI: This is a 56-year-old white male clinic patient of [facility] the presents to the emergency room with abdominal pain, shortness of breath and constipation for the last 1 week. He was found to have a severe large left- sided pleural effusion and Dr. Sen was consulted who performed thoracentesis and removed 3.7 L of fluid that has been sent to lab for evaluation. Repeat CT scan considering high suspicion of neoplastic process reveals residual infiltrate and pleural fluid that had been removed yesterday. Patient has been placed empirically on cefepime and Levaquin and nebulizer treatments and she denies any significant pain issues. He is being transferred to fourth floor and will be followed up closely for reaccumulation of pleural fluid. Progress Notes/Assess & Plan Date Seen 08/28/16 Admission Dx/Process Assessment: Left-sided pleural effusion status post thoracentesis uncomplicated by Dr. Sen removing 3.7 L of fluid analysis and labs pending Infiltrate noted on repeat CT scan status post thoracentesis empirically placed on cefepime and Levaquin COPD Current smoker Hypertension Chronic illness and debility Diagonsis/Assessment & Plan Chart Review: Nurse called me at 0800 to report pt had significant respiratory failure requiring BiPAP while he was up taking a shower. He is scheduled for pleurx catheter. No fever Vitals stable WBC now 34.7k Hgb 18.4 Na+ 127 Blood sugar 255 Creat normal reference and instruction librarian: RN states that catheter placement is scheduled for 10:30 this morning. Pt received Fentanyl 50mg this morning, but requests Morphine. Patient Interview: Dr. Lozano discusses placement of catheter with pt. Pt denies having pain currently, but is uncomfortable and has difficulty breathing. Dr. Lozano assures pt that all precautions are being taken to prevent damage to pt's lungs. Pt was visited by sons today. Dr. Lozano discusses overall care plan with pt's sons, and they are understanding of situation. Physical exam stable. No fever, vital signs stable, chronically ill, thin, mild distress on biPAP, sons at bedside Regular rate and rhythm, clear to auscultation bilaterally but diminished in the bases especially on left No edema Assessment: Left-sided pleural effusion status post thoracentesis uncomplicated by Dr. Sen removing 3.7 L of fluid analysis and cytology negative for malignancy but rapid accumulation will require Pleurx catheter placement today now w/ respiratory insufficiency requiring biPAP Infiltrate noted on repeat CT scan status post thoracentesis empirically placed on cefepime and Levaquin COPD Current smoker Hypertension Chronic illness and debility severe constipation s/p resolution after SSE Plan: DC Fentanyl Start Morphine Pleurx catheter placement at 10:30am Maintain antibiotics Nebulizer treatments Oxygen Appreciate Dr. Donis's valuation and management Appreciate Dr. Sen service Scribed by Lorenzo Varma under the direct supervision of Dr. Lozano. DAWIT LOZANO DO Aug 28, 2016 10:31
--- NOTE | 2016-08-28 11:10 | Progress Note-Standard ---
Standard Progress Note Progress Notes/Assess & Plan Progress/Assessment & Plan To ICU to assist with sedation for Pleurex Catheter placement. Patient on BiPap. SpO2 100%. Versed 2mg and fentanyl 50mcg given for procedure. Tolerated well. Care to SUPERVISOR PHOTOCOMPOSITION. MARI REGALADO CRNA Aug 28, 2016 11:10
--- NOTE | 2016-08-28 11:26 | Progress Note-Post Operative ---
Post-Operative Progess Note Pre-Operative Diagnosis recurrent left pleural effusion Post-Operative Diagnosis same Post-Op Procedure Note Date of Procedure: Aug 28, 2016 Name of Procedure: Pleur-x catheter placement left chest u/s guidance Procedure Note/Findings see note Anesthesia Type per dry ice maker Estimated blood loss (mL): minimal Specimen(s) collected pleural fluid MARY ROE DO Aug 28, 2016 11:26
--- NOTE | 2016-08-28 11:39 | Diagnostic Imaging Report ---
Portable upright radiograph of the chest. INDICATION: Chest tube placement. FINDINGS: There is significant improvement in the large left pleural effusion with small left effusion remaining. There is left perihilar and basilar infiltrate or atelectasis. The right lung is clear. The heart size is normal. No pneumothorax. IMPRESSION: Significant improvement with remaining small left pleural effusion and right perihilar and basilar infiltrate or atelectasis. Dictated by: Dictated on workstation # [id number]
--- NOTE | 2016-08-28 12:20 | Diagnostic Imaging Report ---
EXAMINATION: Ultrasound of the left chest was performed for evaluation for effusion and guidance of thoracentesis Indication: Pleural effusion FINDINGS: There is a large left pleural effusion. An appropriate area was marked for thoracentesis. IMPRESSION: Left pleural effusion. Dictated by: Dictated on workstation # [id number]
[2016-08-28 12:45] LABS: BODY FLUID TRIGLYCERIDES 45 MG/DL; GLUCOSE,BODY FLUID 33 MG/DL; TOTAL PROTEIN,BODY FLUID 2.3 G/DL
[2016-08-28] MEDS: CEFEPIME 2 GM/NS 50 ML IVPB IV SCH ×2 (12:47)
[2016-08-28 15:14] LABS: LDH,BODY FLUID 2774 U/L
--- NOTE | 2016-08-28 19:31 | Diagnostic Imaging Report ---
PROCEDURE: CT head without contrast. TECHNIQUE: Multiple contiguous axial images were obtained through the brain without the use of intravenous contrast. INDICATION: Altered mental status. Found on floor. Nonresponsive. Correlation made with MRI of the brain from July 26, 2014. FINDINGS: Sequela related to the patient's previously demonstrated basal ganglia infarcts on MRI from 2014 are noted. There is no evidence of new territorial loss of cuellar-white differentiation demonstrated. There is no acute hemorrhage. There is no mass effect or hydrocephalus or evidence of an abnormal extra-axial fluid collection. Global volume loss is demonstrated and greater than typically expected for age. Basilar cisterns patent. Posterior fossa demonstrates no acute abnormalities. There are opacified right-sided mastoid air cells. The paranasal sinuses appear clear. No acute calvarial abnormality is demonstrated. IMPRESSION: 1. Low density is demonstrated within the basal ganglia compatible with previous infarcts demonstrated on the MRI from July 2014. No new territorial loss of cuellar-white differentiation is evident by CT imaging. If concern for acute ischemia, MRI could be considered. 2. Advanced global volume loss for age. 3. No evidence of intracranial hemorrhage, mass effect or hydrocephalus. Dictated by: Dictated on workstation # [id number]
[2016-08-28] MEDS ORDERED: LEVOFLOXACIN 750 MG TAB (LEVAQUIN) PO SCH (21:00)
[2016-08-28] MEDS: NS IV 1000 ML 1,000 ML IV SCH (21:24)
[2016-08-28] MEDS ORDERED: LEVOFLOXACIN 750 MG/150 ML IV 150 ML IV ONE (23:51)
[2016-08-29] VITALS (23 sets, daily range): BP systolic 87–120; BP diastolic 58–92
[2016-08-29] MEDS ORDERED: LIDOCAINE UROJET 2% GEL 10 ML PKG ONE (01:14)
[2016-08-29] MEDS: CEFEPIME 2 GM/NS 50 ML IVPB IV SCH ×2 (01:57)
[2016-08-29 03:41] LABS: BASOPHILS % (AUTO) 0 % (0-10); EOSINOPHILS % (AUTO) 0 % (0-10); LYMPHOCYTES # (AUTO) 1.5 X 10^3 (1.0-4.0); LYMPHOCYTES % (AUTO) 5 % (12-44); MEAN CORPUSCULAR HEMOGLOBIN 29 PG (25-34); MEAN CORPUSCULAR HGB CONC 38 G/DL (32-36); MEAN CORPUSCULAR VOLUME 76 FL (80-99); MEAN PLATELET VOLUME 9.4 FL (7.4-10.4); MONOCYTES # (AUTO) 2.8 X 10^3 (0.0-1.0); MONOCYTES % (AUTO) 10 % (0-12); NEUTROPHILS # (AUTO) 24.7 X 10^3 (1.8-7.8); NEUTROPHILS % (AUTO) 85 % (42-75); PLATELET COUNT 206 10^3/uL (130-400); RED BLOOD COUNT 5.97 10^6/uL (4.35-5.85); RED CELL DISTRIBUTION WIDTH 13.7 % (10.0-14.5)
[2016-08-29 04:00] LABS: ANION GAP 13 MMOL/L (5-14); BLOOD UREA NITROGEN 41 MG/DL (7-18); BUN/CREATININE RATIO 42; CALCIUM 7.9 MG/DL (8.5-10.1); CARBON DIOXIDE 12 MMOL/L (21-32); CHLORIDE 100 MMOL/L (98-107); CREATININE SERUM 0.98 MG/DL (0.60-1.30); GFR ESTIMATED > 60; GLUCOSE 227 MG/DL (70-105); MAGNESIUM 1.9 MG/DL (1.8-2.4); PHOSPHORUS 2.6 MG/DL (2.3-4.7); POTASSIUM 5.2 MMOL/L (3.6-5.0)
[2016-08-29 04:02] LABS: SODIUM 125 MMOL/L (135-145)
[2016-08-29] MEDS: inSUlin ASPART (NovoLOG) 1 UNIT/0.01 ML (CHARGE PER UNIT) SC SCH ×4 (06:00→21:00)
[2016-08-29 06:30] LABS: ABG BASE EXCESS -8.8 MMOL/L (-2.5-2.5); ABG OXYGEN SATURATION 94 % (94-100); ABG PH 7.54 (7.37-7.43); ABG PO2 57 MMHG (79-93); ABG TCO2 14.2 MMOL/L (21.0-31.0)
[2016-08-29] MEDS ORDERED: SODIUM BICARB 8.4% 50 MEQ/50 ML (ABBOTT) SYR IV ONE (06:30)
[2016-08-29 06:33] LABS: ABG HCO3 14 MMOL/L (23-27); ABG PCO2 16 MMHG (35-45)
[2016-08-29 06:34] LABS: PATIENT TEMP 96.2
--- NOTE | 2016-08-29 06:41 | Pulmonary Progress Note ---
Subjective Subjective/Events-last exam Last night pt fell at 1800 and then started having MS changes. He was transferred to ICU. Pt appears to have had a CVA. 1900 pt has found to have fixed gazed eyes with right sided weakness. Head CT is negative for acute CVA. It does not appear pt hit his head. Exam Exam Vital Signs Date Time Temp Pulse Resp B/P (MAP) Pulse Ox O2 Delivery O2 Flow Rate FiO2 08/29/16 04:00 Nasal Cannula 3.00 08/29/16 02:00 135 37 120/84 97 Nasal Cannula 3.00 08/29/16 01:12 134 08/29/16 01:00 137 34 89/63 98 Nasal Cannula 3.00 08/29/16 00:00 Nasal Cannula 3.00 08/29/16 00:00 98.4 129 38 89/64 90 Nasal Cannula 3.00 08/28/16 23:00 129 33 103/75 99 Nasal Cannula 3.00 08/28/16 22:00 133 30 102/65 97 Nasal Cannula 3.00 08/28/16 21:00 131 32 107/95 100 Nasal Cannula 3.00 08/28/16 20:15 Non Rebreather 15.00 08/28/16 20:04 128 08/28/16 20:00 98.0 132 32 118/79 100 Nasal Cannula 3.00 08/28/16 19:00 96.7 130 24 116/86 NIV Bilevel 96.00 08/28/16 18:20 31 90 85.00 08/28/16 16:37 96.5 107 24 127/86 98 Nasal Cannula 3.00 08/28/16 14:45 92 3.00 08/28/16 12:15 96.0 110 22 118/78 95 08/28/16 11:30 96.0 110 22 128/80 95 08/28/16 11:00 96.0 110 22 120/78 95 08/28/16 09:00 Nasal Cannula 5.00 08/28/16 08:50 74 38 95 85.00 08/28/16 08:44 94.0 135 28 127/76 08/28/16 08:24 91 3.50 I & O 08/29/16 07:00 Intake Total 250 ml Output Total 3575 ml Balance -3325 ml General Appearance: No Apparent Distress, WD/WN HEENT: PERRL/EOMI, Normal ENT Inspection, Pharynx Normal Neck: Full Range of Motion, Normal Inspection, Non Tender, Supple, Carotid Bruit Respiratory: Chest Non Tender, Decreased Breath Sounds (left significantly decreased breath sounds), Wheezing (right lung) Cardiovascular: Normal Peripheral Pulses, Tachycardia Capillary Refill: Less Than 3 Seconds Gastrointestinal: non tender, soft Extremity: Normal Capillary Refill, Normal Inspection, Normal Range of Motion, Non Tender, No Calf Tenderness, No Pedal Edema Neurologic/Psychiatric: Alert, Oriented x3, No Motor/Sensory Deficits, Normal Mood/Affect Skin: Normal Color, Warm/Dry Lymphatic: No Adenopathy Results Lab Laboratory Tests 08/28/16 05:50 08/29/16 03:23 Assessment/Plan Assessment/Plan Large left pleural effusion r/o cancer -- Exudative - hemothorax -s/p Pleurx catheter placement - cytology from pleural fluid is negative -- will repeat -I highly suspect cancer - repeat pleural fluid cytology Acute CVA - with hx of CVA with right sided flaccid paralysis -Pt is not TPA candidate secondary to hemothorax -Repeat CT of head and chest with contrast Severe metabolic acidosis with over respiratory compensation -Will give 1 amp of NaHC03 -check lactic acid hyponatremia - probably secondary to SIDH -Continue to monitor Sepsis - -cefepime, Levaquin -- change to merrem and vanco -Rodriguez cultures negative Tobacco hx with probable COPD -Check out patient PFT -education Pt's prognosis is very poor. He had acute CVA last night with right sided paralysis. He is currently nonverbal. Clinical Quality Measures DVT/VTE Risk/Contraindication: Risk Factor Score Per Nursin RFS Level Per Nursing on Admit: 2=Moderate TROY GROVES DO Aug 29, 2016 06:41
[2016-08-29] MEDS: morphine INJ 4 MG/ML 1 ML (VIAL/SYRINGE) IVP PRN ×3 (06:42→23:46)
[2016-08-29] MEDS: RT-ALBUTEROL/IPRATROPIUM 3 ML (DUONEB) VIAL INH SCH ×3 (06:43→20:43)
[2016-08-29] MEDS ORDERED: PHARMACY TO DOSE IV SCH (06:45)
[2016-08-29] MEDS ORDERED: VANCOMYCIN 1500 MG/NS 500 ML IVPB IV NR ×2 (07:00)
[2016-08-29] MEDS ORDERED: NS 100 ML (IVPB) BAG IV ONE ×2 (07:30→07:45)
[2016-08-29] MEDS ORDERED: IOHEXOL 350 MG/ML 150 ML (OMNIPAQUE 350) VIAL IV ONE ×2 (07:30→07:45)
--- NOTE | 2016-08-29 07:42 | Diagnostic Imaging Report ---
INDICATION: Pleural effusion. Portable chest 5:12 AM. There is a large left pleural effusion. This appears to have increased in volume since the previous day 's comparison study. Right lung is clear. Heart size is normal. IMPRESSION: Enlarging left pleural effusion which occupies more than 50 percent of the left hemithorax. Dictated by: Dictated on workstation # [id number]
[2016-08-29] MEDS ORDERED: CATHETER FLUSH 10 ML SYR IV PRN (07:45)
--- NOTE | 2016-08-29 08:36 | Diagnostic Imaging Report ---
PROCEDURE: CT angiography of the chest with contrast. TECHNIQUE: Multiple contiguous axial images were obtained through the chest after uneventful bolus administration of intravenous contrast. Reconstructed CTA MIP acquisitions were also performed. Indication: Dyspnea and hypoxia. Comparison: 08/25/2016. Discussion: Exam is slightly degraded by patient respiratory motion. No pulmonary embolus identified. Normal heart size. The pulmonary arteries are normal in caliber. The thoracic aorta is normal in caliber and configuration. The left vertebral artery does arise directly from the aortic arch. Moderate to large layering left pleural effusion is present. There is complete collapse of the left lower lobe. Left Pleurx catheter is present and appears to be within good position within the pleural fluid. Underlying emphysema is noted. No focal consolidation or suspicious pulmonary nodule. The visualized upper abdomen is unremarkable. No acute osseous abnormality identified. Impression: 1. Moderate to large layering left pleural effusion is increased from previous exam. Interval placement of a left chest Pleurx catheter which appears to be in good position within the pleural fluid. 2. Complete collapse of the left lower lobe, increased from prior. 3. No pulmonary embolus identified. Dictated by: Dictated on workstation # [id number]
--- NOTE | 2016-08-29 08:46 | Diagnostic Imaging Report ---
PROCEDURE: CT angiography of the head with and without contrast. TECHNIQUE: Noncontrast CT of the head was obtained. Subsequently, after intravenous administration of contrast, thin section axial CT angiography of the head was performed. Source data was reformatted into multiple MIP reformats. Delayed postcontrast acquisition of the head was also acquired. INDICATION: Altered mental status. 80 mL of Omnipaque 350 is administered intravenously. FINDINGS: The right ICA demonstrates atherosclerotic plaque with calcified component in the cavernous segment and supraclinoid segment with no high-grade stenosis. The right MCA and ROSANNE are patent. The left internal carotid artery demonstrates also mild plaque along the cavernous segment with no high-grade stenosis. The MCA and ROSANNE are patent. The intracranial portions of the vertebral arteries are codominant and are patent. The basilar artery is patent. The basilar artery terminates at a left posterior cerebral artery with a tiny left PCoA seen. The right PCoA is prominent with origin of the right CENTRIFUGAL MACHINE TENDER seen and hypoplastic P1 segment on the right side. The venous sinuses appear patent. The parenchymal postcontrast enhancement phase demonstrates no enhancing mass. There is hypodensity in the right periventricular white matter with encephalomalacia suggestive of an old infarct. There is also suggestion of an age-indeterminate lacunar infarct in the left centrum semiovale seen. There is opacification in the right mastoid air cells mostly medially. The left mastoid air cells and the rest of the paranasal sinuses appear clear. IMPRESSION: 1. There is no high-grade stenosis, occlusion, or aneurysm in the central intracranial arteries. 2. Partial opacification of the right mastoid air cells. Correlate for possible mastoiditis. 3. Periventricular white matter hypodensities seen are favored to be related to old lacunar infarcts. Dictated by: Dictated on workstation # [id number]
[2016-08-29] MEDS: LACTULOSE SYRUP 10GM/15ML (ENULOSE) 30ML UDC PO SCH ×2 (09:00→21:00)
[2016-08-29] MEDS: BISACODYL 5 MG (DULCOLAX) TABLET PO SCH ×2 (09:00→21:00)
--- NOTE | 2016-08-29 09:02 | Pulmonary Progress Note ---
Standard Progress Note Progress Notes Assessment & Plan Large left pleural effusion r/o cancer -- Exudative - hemothorax -s/p Pleurx catheter placement - cytology from pleural fluid is negative -- will repeat -I highly suspect cancer - repeat pleural fluid cytology Acute CVA - with hx of CVA with right sided flaccid paralysis -Pt is not TPA candidate secondary to hemothorax -Repeat CT of head and chest with contrast Severe metabolic acidosis with over respiratory compensation -Will give 1 amp of NaHC03 -check lactic acid hyponatremia - probably secondary to SIDH -Continue to monitor Sepsis - -cefepime, Levaquin -- change to merrem and vanco -Rodriguez cultures negative Tobacco hx with probable COPD -Check out patient PFT -education Pt's prognosis is very poor. He had acute CVA last night with right sided paralysis. He is currently nonverbal. Discussed with family two sons at bedside and with (who's in NH) over phone. states she is ok with any decision that the son's make and son's want to make him full DNR and will probably make him SAMPLE CARRIER once daughter arrives. TROY GROVES DO Aug 29, 2016 09:02
--- NOTE | 2016-08-29 09:17 | OPERATIVE REPORT ---
PROCEDURE PHYSICIAN: MARY ROE DATE OF PROCEDURE: 08/28/2016 PREOPERATIVE DIAGNOSIS: Recurrent left pleural effusion. POSTOPERATIVE DIAGNOSIS: Recurrent left pleural effusion. PROCEDURE: Pleurx catheter placement left chest using ultrasound guidance. SURGEON: Francy. ANESTHESIA: Per CUSTOM SKI MAKER. ESTIMATED BLOOD LOSS: Minimal. COMPLICATIONS: None. INDICATIONS: The patient is a 56-year-old male with a recurrent left pleural effusion. This was reaccumulating fairly rapidly. It was discussed with Dr. Donis and Dr. Bailon about placing the Pleurx catheter and everybody is in agreement with Pleurx catheter placement. The patient was explained risk and benefits of the procedure and wishes to proceed with procedure. Consent was signed on the chart. PROCEDURE: The patient was prepped and draped in the sterile fashion. Timeout was performed. Local anesthetic of 1% lidocaine was used to anesthetize the area after a good window was demonstrated by ultrasound of the left chest fluid pocket. Once the anesthetic effect took place, a number 11 blade scalpel was used to make an incision and a second incision was used to make a small incision just inferior approximately 5 cm away. Using an Angiocath needle the chest cavity was entered and straw carley-colored fluid was withdrawn and the catheter was inserted into the chest. A wire was inserted through the catheter and the catheter was removed. The wire was secured. The Pleurx catheter was then tunneled through the 2 incisions. Dilators were then advanced over the wire and removed. The dilator sheath was then advanced over the wire and the wire and dilator were removed. The Pleurx catheter was inserted through the sheath. The sheath was then removed. A total of 3,575 mL of carley to straw-colored fluid was evacuated from the left chest. The patient began breathing easier. The specimen was sent to the lab. The insertion point incision was closed using absorbable suture. The inferior incision was closed with silk suture and secured to the Pleurx catheter. The area was then washed and dried. A sterile bandage was then applied. The patient tolerated the procedure well without any complications. He was recovered in the ICU where the procedure was performed. Chest x-ray pending. Job ID: [id number] Dictated Date: 08/28/2016 15:47:10 Rouge Mixer Date: 08/29/2016 09:08:54 / [email or web address]
--- NOTE | 2016-08-29 09:56 | Progress Note ---
Subjective Subjective/Events-last exam patient with right sided weakness and not answering questions. in ICU Family at bedside. Objective Exam Vital Signs Date Time Temp Pulse Resp B/P (MAP) Pulse Ox O2 Delivery O2 Flow Rate FiO2 08/29/16 07:12 98.6 08/29/16 07:00 126 08/29/16 06:43 100 3.00 08/29/16 06:00 137 36 100/69 100 Nasal Cannula 08/29/16 05:00 114 16 100/75 96 Nasal Cannula 08/29/16 04:00 98.6 131 29 106/85 100 Nasal Cannula 08/29/16 04:00 Nasal Cannula 3.00 08/29/16 03:00 133 32 97/58 100 Nasal Cannula 08/29/16 02:00 135 37 120/84 97 Nasal Cannula 3.00 08/29/16 01:12 134 08/29/16 01:00 137 34 89/63 98 Nasal Cannula 3.00 08/29/16 00:00 Nasal Cannula 3.00 08/29/16 00:00 98.4 129 38 89/64 90 Nasal Cannula 3.00 08/28/16 23:00 129 33 103/75 99 Nasal Cannula 3.00 08/28/16 22:00 133 30 102/65 97 Nasal Cannula 3.00 08/28/16 21:00 131 32 107/95 100 Nasal Cannula 3.00 08/28/16 20:15 Non Rebreather 15.00 08/28/16 20:04 128 08/28/16 20:00 98.0 132 32 118/79 100 Nasal Cannula 3.00 08/28/16 19:00 96.7 130 24 116/86 NIV Bilevel 96.00 08/28/16 18:20 31 90 85.00 08/28/16 16:37 96.5 107 24 127/86 98 Nasal Cannula 3.00 08/28/16 14:45 92 3.00 08/28/16 12:15 96.0 110 22 118/78 95 08/28/16 11:30 96.0 110 22 128/80 95 08/28/16 11:00 96.0 110 22 120/78 95 I & O 08/29/16 07:00 Intake Total 250 ml Output Total 4575 ml Balance -4325 ml Capillary Refill : Less Than 3 Seconds General Appearance: Other (laying in bed with difficulty following commands) Neck: Full Range of Motion, Normal Inspection, Non Tender, Supple, Carotid Bruit Respiratory: Chest Non Tender, Decreased Breath Sounds (left decreased breath sounds), Wheezing (right lung) Cardiovascular: Normal Peripheral Pulses, Tachycardia Gastrointestinal: non tender, soft Extremity: Normal Capillary Refill, Normal Inspection, Normal Range of Motion, Non Tender, No Calf Tenderness, No Pedal Edema Neurologic/Psychiatric: Other (difficutly following commands right sided weakness) Skin: Normal Color, Warm/Dry Lymphatic: No Adenopathy Results Lab Bad table Assessment/Plan Assessment/Plan Assessment/Plan left pleural effusion, sepsis, hyponatremia large left pleural effusion-recurring s/p thoracentesis and pleur-x catheter placement Leukocytosis WBC elevated acute cva medical management will sign off, if needed please contact Clinical Quality Measures DVT/VTE Risk/Contraindication: Risk Factor Score Per Nursin RFS Level Per Nursing on Admit: 2=Moderate MARY ROE DO Aug 29, 2016 09:56
[2016-08-29] MEDS: NICOTINE 21 MG (NICODERM) PATCH TD SCH (10:01)
[2016-08-29] MEDS: MEROPENEM 500 MG/NS 100 ML IVPB IV SCH ×8 (10:01→23:46)
[2016-08-29] MEDS: NS IV 1000 ML 1,000 ML IV SCH ×4 (10:01→18:51)
[2016-08-29] MEDS: PATCH REMOVAL TP SCH (10:02)
--- NOTE | 2016-08-29 10:27 | Progress Note-Hospitalist ---
Progress Note HPI/CC on Admission CC: SOB and weakness w/constipation HPI: This is a 56-year-old white male clinic patient of [facility] the presents to the emergency room with abdominal pain, shortness of breath and constipation for the last 1 week. He was found to have a severe large left- sided pleural effusion and Dr. Sen was consulted who performed thoracentesis and removed 3.7 L of fluid that has been sent to lab for evaluation. Repeat CT scan considering high suspicion of neoplastic process reveals residual infiltrate and pleural fluid that had been removed yesterday. Patient has been placed empirically on cefepime and Levaquin and nebulizer treatments and she denies any significant pain issues. He is being transferred to fourth floor and will be followed up closely for reaccumulation of pleural fluid. Progress Notes/Assess & Plan Date Seen 08/29/16 Admission Dx/Process Assessment: Left-sided pleural effusion status post thoracentesis uncomplicated by Dr. Sen removing 3.7 L of fluid analysis and labs pending Infiltrate noted on repeat CT scan status post thoracentesis empirically placed on cefepime and Levaquin COPD Current smoker Hypertension Chronic illness and debility Diagonsis/Assessment & Plan Chart Review: Pt had catastrophic stroke last night shortly after a fall on the floor, so transferred to ICU, and pt not a thrombolytic candidate due to bloody pleural effusion and active bleeding. Pt's states that pts sons will make the decision. Pt DNR currently. WBC 29 from 34 ABG this morning 7.54/16/57 Na+ 125 Patient Interview: Pt awake but unable or unwilling to speak during visit. Physical exam stable. Dr. Lozano discusses pt's condition with sons, and introduces palliative care nurse. Pt's sons are emotionally stable, and appreciate the support. No fever, vital signs stable, chronically ill, thin, gaze to left, aphasic, alert, sons at bedside Regular rate and rhythm, clear to auscultation bilaterally but diminished in the bases especially on left No edema Paralysis on left Assessment: Catastrophic ischemic CVA with history of TIAs in the past now aphasic, dysphagia and complete decompensation of status unable to recover hospice candidate Left-sided pleural effusion status post thoracentesis uncomplicated by Dr. Sen removing 3.7 L of fluid analysis and cytology negative for malignancy but rapid accumulation required Pleurx catheter placement yesterday Infiltrate noted on repeat CT scan status post thoracentesis empirically placed on cefepime and Levaquin COPD Current smoker Hypertension Chronic illness and debility Severe constipation s/p resolution after SSE Plan: Palliative care Monitor closely due to recent stroke Poor prognosis overall SW searching for penitentiary placement for if needed Maintain antibiotics Nebulizer treatments Oxygen Appreciate Dr. Donis's valuation and management Appreciate Dr. Sen service Scribed by Lorenzo Varma under the direct supervision of Dr. Lozano. DAWIT LOZANO DO Aug 29, 2016 10:27
[2016-08-29] MEDS: ASPIRIN 325 MG (5 GR) TABLET PO SCH (12:46)
--- NOTE | 2016-08-29 13:48 | ST Dysphagia Evaluation ---
Speech Evaluation-General Medical Diagnosis Left Pleural Effusion, Ischemic CVA Onset Date: Aug 24, 2016 Therapy Diagnosis Therapy Diagnosis: Moderate Oropharyngeal Dysphagia Precautions Precautions: Aspiration Precautions/Isolations: Fall Prevention, Standard Precautions Referral Referring Physician: Dr. Carina Bailon Reason for Referral: Evaluation/Treatment Clinical Bedside Swallowing Evaluation Medical History Pertinent Medical History: COPD, HTN, Smoking Reviewed History: Yes Social History Current Living Status: Alone Speech PLF/Current-Dysphagia Prior Level of Function The patient demonstrate severe expressive and receptive aphasia, therefore, was unable to provide the clinician with prior level of function. Patient's family members were present, who reported the patient consumed a regular diet with thin liquids at home. Subjective The patient was admitted to [facility] on 08/24/2016 with a diagnosis of left sided pleural effusion. The patient underwent a thoracentesis on with a subsequent chest CT scan demonstrating high suspicion for a neoplastic process. The patient experienced an ischemic CVA on 08/29/16 resulting in severe expressive and receptive aphasia. The patient was transferred to ICU and placed on 4L supplemental oxygen via nasal cannula. The patient made limited eye contact with the clinician upon entrance and discussion. The patient demonstrated severe expressive and receptive aphasia, being unable to complete oral motor examination. Cognitive Status Patient Orientation: Non-Verbal/Aphasic Oral Motor Skills Dentition: Natural Ability to Follow Directions: Unable The patient is currently NPO pending results of swallowing evaluation. Oral Expression Ability: Severe Impairment The patient was unable to follow verbal prompts with direct modeling provided by the clinician. Face Asymmetry was not noted at rest. The patient did not demonstrate facial expressions or movements for the clinician to successfully evaluate for facial asymmetry. Oral-Facial Assessment Oral-Facial Dentition: Normal The patient was unable to follow verbal directions or direct modeling by the clinician to complete the oral motor examination. Volitional Dry Swallow: No Voluntary Cough: No Dysphagia Evaluation Consistencies Presented: Thin Liquid (Via teaspoon and straw sip), Pureed ( Solid consistencies were deferred secondary to oral holding and prolonged oral phase with puree.) Oral Phase: Anterior Spillage, Unable to Suck Straw, Reduced Oral Transit Anterior spillage was intermittently noted of thin liquids via teaspoon. The patient was intermittently unable to draw liquid through a straw, however, at times, performed this task proficiently. Oral holding was noted of puree consistencies with the patient completing the swallow following verbal prompts. Pharyngeal Phase: Decreased A/P Bolus Transit - Thin Liquid (via teaspoon and straw), Puree: No overt signs/symptoms of aspiration were demonstrated with multiple boluses of water via teaspoon and straw sip or puree. Vocal quality could not be assessed due to the patient's severe aphasia. Respirations remained stable throughout the evaluation. Dietary Recommendations: Pureed Liquid Recommendations: Thin Swallowing Precautions: Oral Supervision Staff, Oral Supervision Caregiver, Small Bites and Sips, Sitting 90 Degrees 30 Post Intake - Crush medication and place in puree for administration. - Verbal prompts by family members and/or staff to initiate swallow (eliminate oral holding). - Supervision throughout meals/PO intake. - Alert for all PO intake. * As the clinician is unsure if the patient will be able to consume adequate nutrition to meet needs, may consider the placement of a feeding tube if necessary/appropriate. Dysphagia Evaluation Summary Moderate Oropharyngeal Dysphagia Barriers to Learning Lethargy, Severe Expressive and Receptive Aphasia Speech Short Term Goals Short Term Goals Short Term Goals 1. The patient will demonstrate swallowing strategies with 80% accuracy and moderate clinician cueing. Time Frame-STG: One Week Speech Senior Net Developer Architect Goals Long-Term Goals 1. The patient will tolerate the least restrictive diet without signs/symptoms of aspiration or laryngeal penetration. Speech-Plan Treatment Plan Speech Therapy Treatment Plan: Continue Plan of Care Continue skilled speech therapy to re-evaluate diet consistency appropriateness. Treatment Duration: Sep 12, 2016 # of days/week One to Three Visits Per Week: One to Three Minutes/Day (M-F): 15 Rehab Potential: Poor Barriers to Learning: The patient demonstrated signficant lethargy and severe receptive and expressive aphasia throughout the evaluation. Due to these findings, the patient may have difficulty following directions and displaying compliance with recommended swallowing strategies. Pt/Family Agrees to Plan: Yes Safety Risks/Education Teaching Recipient: Patient, Family Teaching Methods: Discussion Response to Teaching: Verbalize Understanding, Reinforcement Needed Education Topics Provided: Results, Recommendations, Swallowing Strategies, Signs/Symptoms of Aspiration Time Speech Therapy Time In: 12:00 Speech Therapy Time Out: 12:20 Total Billed Time: 20 Billed Treatment Time 1GARLANDMalachiTORY Aug 29, 2016 13:48
[2016-08-29] MEDS ORDERED: MEROPENEM 1,000 MG in NS (IVPB) 100 ML IV SCH (14:00)
[2016-08-29 14:33] LABS: BASOPHILS % (AUTO) 0 % (0-10); EOSINOPHILS % (AUTO) 0 % (0-10); LYMPHOCYTES # (AUTO) 1.3 X 10^3 (1.0-4.0); LYMPHOCYTES % (AUTO) 5 % (12-44); MEAN CORPUSCULAR HEMOGLOBIN 29 PG (25-34); MEAN CORPUSCULAR HGB CONC 38 G/DL (32-36); MEAN CORPUSCULAR VOLUME 76 FL (80-99); MEAN PLATELET VOLUME 9.3 FL (7.4-10.4); MONOCYTES % (AUTO) 11 % (0-12); NEUTROPHILS # (AUTO) 23.4 X 10^3 (1.8-7.8); NEUTROPHILS % (AUTO) 85 % (42-75); PLATELET COUNT 193 10^3/uL (130-400); WHITE BLOOD COUNT 27.7 10^3/uL (4.3-11.0)
[2016-08-29 14:57] LABS: ALANINE AMINOTRANSFERASE 46 U/L (0-55); ALBUMIN 2.3 G/DL (3.2-4.5); ANION GAP 12 MMOL/L (5-14); ASPARTATE AMINO TRANSFERASE 58 U/L (5-34); BILIRUBIN,TOTAL 0.6 MG/DL (0.1-1.0); BLOOD UREA NITROGEN 38 MG/DL (7-18); BUN/CREATININE RATIO 44; CALCIUM 7.9 MG/DL (8.5-10.1); CARBON DIOXIDE 13 MMOL/L (21-32); CHLORIDE 104 MMOL/L (98-107); CREATININE SERUM 0.87 MG/DL (0.60-1.30); GFR ESTIMATED > 60; GLUCOSE 207 MG/DL (70-105); POTASSIUM 5.2 MMOL/L (3.6-5.0); SODIUM 129 MMOL/L (135-145); TOTAL PROTEIN 4.2 G/DL (6.4-8.2)
--- NOTE | 2016-08-29 15:14 | Occupational Therapy Eval ---
OT Evaluation-General/PLF Medical Diagnosis Admission Date Aug 24, 2016 at 17:27 Medical Diagnosis: Left Pleural Effusion, Ischemic CVA Onset Date: Aug 24, 2016 Therapy Diagnosis Therapy Diagnosis: weakness, impaired self care skills Height/Weight Height (Feet): 5 Height (Inches): 7.00 Weight (Pounds): 148 Weight (Ounces): 3.2 Precautions Precautions/Isolations: Fall Prevention, Standard Precautions Safety Interventions: Bed Exit Alarm, Reorient-PRN Referral Physician: Uvaldo Medical History Pertinent Medical History: COPD, HTN, Smoking Current History Pt admitted on 08/24 with left pleural effusion. Pt underwent thoracentesis on . Pleurex catheter placed on 08/28. Pt had CVA on 08/28. Social History Home: travel trailer Current Living Status: Alone Entry Into Home: Stairs With Railing Steps Into Home: 1 ADL-Prior Level of Function ADL PLOF Comments Pt in non-verbal, unable to answer any questions regarding PLOF. OT Current Status Subjective Pt in bed with family present. Pt lethargic, opens eyes with stimulation, but does not make eye contact and has left gaze. Pt does not verbalize during session. Mental Status/Objective Patient Orientation: Non-Verbal/Aphasic Attachments: White Catheter, IV, Oxygen Current Hand Dominance: Right Upper Extremity ROM Pt demonstrates minimal spontaneous active movement of left UE, but it is not purposeful and does not move extremity to command. No active movement noted in right UE. PROM of right UE is grossly functional. Upper Extremity Sensation unable to assess at this time. Upper Extremity Strength Pt unable to follow commands for MMT. No active movement of right UE. Pt has left gaze and does not track to right ADL-Treatment ADL-Current Pt supine to sit with assist x2. Pt unable to maintain posture and balance at EOB, requires assist x2 for balance. Pt pushing heavily with left UE. Pt keeps head turned to left, does not follow commands to turn head to right. Unable to assess ADLs at this time. Sit to supine and repositioned in bed with assist x2. Family present with pt after session. Functional [place] Measure 0=Not Assessed/NA 4=Minimal Assistance 1=Total Assistance 5=Supervision or Setup 2=Maximal Assistance 6=Modified [place] 3=Moderate Assistance 7=Complete IndependenceIRFPAI Quality Coding Scale 6 Independent with activity with or without an assistive device 5 Patient requires set up or clean up by helper. Patient completes activity by themselves 4 Supervision or touching assist (CGA). [place] provide cues , steadying assist 3 The helper provides less than half the effort to complete the activity 2 The helper provides more than half the effort to complete the activity 1 Dependent. The helper does all the effort to complete an activity 7 Patient refused to complete or attempt activity 9 The patient did not perform the activity before the current illness or injury 88 Not attempted due to Medical conditions or safety concerns Co-treat with PT. OT focusing on UE assessment/management and sitting balance. PT focusing on LE assessment and balance. OT Short Term Goals Short Term Goals 1=Demonstrate adherence to instructed precautions during ADL tasks. 2=Patient will verbalize/demonstrate understanding of assistive devices/ modifications for ADL. 3=Patient will improve strength/tolerance for activity to enable patient to perform ADL's. OT Usp Goals Usp Goals Time Frame: Sep 12, 2016 Eating (FIM): 3 Grooming(FIM): 3 Upper Body Dressing(FIM): 2 Additional Goals: 2-Verbalize Understanding, 3-ImproveStrength/Yesica 1=Demonstrate adherence to instructed precautions during ADL tasks. 2=Patient will verbalize/demonstrate understanding of assistive devices/ modifications for ADL. 3=Patient will improve strength/tolerance for activity to enable patient to perform ADL's. OT Education/Plan Problem List/Assessment Assessment: Decreased Activ Tolerance, Decreased Safety Aware, Decreased UE Strength, Dependent Transfers, Impaired Bed Mobility, Impaired Cognition, Impaired Coordination, Impaired Funct Balance, Impaired I ADL's, Impaired Self- Care Skills Pt evaluated in ICU this pm. Pt opens eyes briefly, demonstrates left gaze. Pt has spontaneous movement of left UE, but does not move to command. Pt does not demonstrate any active movement of right UE. Pt does not respond to commands and is nonverbal. Pt requires total assist for bed mobility and to sit EOB. Pt to benefit from skilled OT intervention for ROM/strengthening, ADL training, and transfers as pt able to tolerate and participate. Will progress activity as appropriate. Discharge Recommendations Plan/Recommendations: Continue POC Treatment Plan/Plan of Care Treatment,Training & Education: Yes Patient would benefit from OT for education, treatment and training to promote independence in ADL's, mobility, safety and/or upper extremity function for ADL' s. Plan of Care: ADL Retraining, Functional Mobility, UE Funct Exercise/Act, UE Neuromus Re-Ed/Coord Treatment Duration: Sep 12, 2016 # of days/week 5 Rehab Potential: Guarded Time/GCodes Start Time: 14:20 Stop Time: 14:45 Total Time Billed (hr/min): 10 Billed Treatment Time 1 visit, EV(10minutes) Co-treat with PT ANJANA MENA OT Aug 29, 2016 15:14
[2016-08-29 15:42] LABS: ABG BASE EXCESS -8.8 MMOL/L (-2.5-2.5); ABG OXYGEN SATURATION 94 % (94-100); ABG PH 7.51 (7.37-7.43); ABG PO2 66 MMHG (79-93); ABG TCO2 14.4 MMOL/L (21.0-31.0)
[2016-08-29 15:43] LABS: ABG HCO3 14 MMOL/L (23-27); ABG PCO2 18 MMHG (35-45); ALLENS TEST YES-POS
[2016-08-29 15:44] LABS: PATIENT TEMP 98.8
--- NOTE | 2016-08-29 16:14 | Physical Therapy Evaluation ---
PT Evaluation-General Medical Diagnosis Admission Date Aug 24, 2016 at 17:27 Medical Diagnosis: Left Pleural Effusion, Ischemic CVA Onset Date: Aug 24, 2016 Therapy Diagnosis Therapy Diagnosis: debility Height/Weight Height (Feet): 5 Height (Inches): 7.00 Weight (Pounds): 148 Weight (Ounces): 3.2 Precautions Precautions/Isolations: Fall Prevention, Standard Precautions Weight Bear Status Weight Bearing Restriction: Weight Bearing/Tolerated Location Restriction: LE Bilateral Referral Physician: Uvaldo Reason for Referral: Evaluation/Treatment Medical History Pertinent Medical History: COPD, HTN, Smoking Current History Pt admitted for pleural effusion on 08/24/16. s/p thoracentesis with reaccumulation of fluid. Catheter placed in ICU on 08/28/16 due to reaccumulation of fluid. Pt fell at 1800 on 08/28/16 with AMS, eyes fixed to (R) side. New diagnosis of CVA. Reviewed History: Yes Social History Home: travel trailer Current Living Status: Alone Entry Into Home: Stairs With Railing PT Steps Into Home: 1 Prior/Core FIM Prior Level of Function Functional [place] Measure 0=Not Assessed/NA 4=Minimal Assistance 1=Total Assistance 5=Supervision or Setup 2=Maximal Assistance 6=Modified [place] 3=Moderate Assistance 7=Complete [place] Bed Mobility: 7 Transfers (B,C,W/C) (FIM): 7 Gait: 7 PT Evaluation-Current Subjective Pt in bed, son in room. Pt with eyes fixed and head turned to (L). Opened eyes on command but no other purposeful command following during evaluation. No verbalization. Objective Patient Orientation: Unable to Assess Problem Solving: Poor Attachments: Oxygen, White Catheter, Other-See Comments (multiple lines), IV ROM/Strength ROM Upper Extremities See OT ROM Lower Extremities WFL; passive assessment (B) LE. Pt did not initiate any movement on either LE this date. Strength Upper Extremities See OT Strenght Lower Extremities Flaccid on (R). 0/5 on (L) as Pt made no active movement in (L) LE this date. Integumentary/Posture Integumentary See nurses' notes Bowel Incontinence: No Bladder Incontinence: White Cath Neuromuscular (Tone, Coordination, Reflexes) flaccid on (R) LE, no tone noted this date. (-) clonus Sensory Vision: Functional Hearing: Functional Hand Dominance: Right Sensation Lower Extremities Unable to assess Transfers Functional [place] Measure 0=Not Assessed/NA 4=Minimal Assistance 1=Total Assistance 5=Supervision or Setup 2=Maximal Assistance 6=Modified [place] 3=Moderate Assistance 7=Complete [place] Transfers (B, C, W/C) (FIM): 1 Scootin Rollin Supine to/from Sit: 1 Sit to/from Stand: 0 bed t/f WC(FIM only if WC use): 0 Pt sat EOB with dependent/total assist x 2. No purposeful, voluntary movement made by Pt this date. Pt sat EOB x 5' with dependent/total assist with slumped posture. Did not follow cues to self correct balance or turn head towards family. Pushing hard to (R) when (L) hand not placed in lap. Returned to supine with dependent/total assist x 2. Dependent assist x 2 for all bed mobility. Balance Sitting Static: Poor (Dependent x 2) Sitting Dynamic: Poor (Dependent x 2) Treatment Eval. Returned to bed with all needs met, O2 in situ, family in room. Assessment/Needs Pt is a 56 y.o. male s/p CVA. Pt's problem list includes: decreased UE/LE strength, dependent sitting balance, and dependent functional mobility. Pt may benefit from skilled PT to improve LE movement and (I) with functional mobility but, this date, no purposeful, voluntary movements were demonstrated with any limbs. Clinical presentation: high complexity, unstable Rehab Potential: Guarded PT Short Term Goals Short Term Goals Time Frame: Sep 12, 2016 Additional Short Term Goals Pt will sit EOB with SBA. PT Usp Goals Towel Sorter Goals PT Usp Goals Time Frame: Sep 26, 2016 Transfers (B,C,W/C) (FIM): 3 Gait (FIM): 1 Gait distance (FIM): 1=up to 49 ft Distance: 50 Gait Level of Assist: 3 Gait Assistive Device: FWW Wheelchair (FIM): 5 Wheelchair distance (FIM): 3=150 ft Distance: 150 Wheelchair Level of Assist: 5 Pt goals established to allow decreased caregiver burden upon safe discharge. PT Plan Problem List Problem List: Activity Tolerance, Functional Strength, Safety, Balance, Gait, Transfer, Bed Mobility Treatment/Plan Treatment Plan: Continue Plan of Care Treatment Plan: Bed Mobility, Education, Functional Activity Yesica, Functional Strength, Gait, Safety, Therapeutic Exercise, Transfers Treatment Duration: Sep 26, 2016 # of days/week 5-6 Visits Per Week: 5-6 Pt/Family Agrees w/Plan: Yes Initial frequency at daily 5-6x/week. POC will be adjusted as indicated with improvement in level of awareness, alertness. Discharge Recommendations Plan continue to assess Therapy D/C Recommendations: Care Home (TCU/NH) Barriers to Progress decreased level of alertness, no purposeful/voluntary movement from either side. Time/GCodes Time In: 1420 Time Out: 1445 Total Billed Treatment Time: 15 Total Billed Treatment 1, EVHIGHC x 15' co-eval with OT due to level of assist required; OT addressing UE, PT addressing LE, sitting balance. G Codes Necessary: GUALBERTO Haji DPT Aug 29, 2016 16:14
[2016-08-29] MEDS: VANCOMYCIN 1250 MG/NS 250 ML IVPB IV SCH ×2 (19:53)
[2016-08-29] MEDS ORDERED: HEParin DRIP 25000 UNIT/500ML 500 ML IV SCH (20:09)
[2016-08-29 21:00] LABS: MEAN PLATELET VOLUME 9.4 FL (7.4-10.4); RED BLOOD COUNT 5.49 10^6/uL (4.35-5.85); RED CELL DISTRIBUTION WIDTH 14.1 % (10.0-14.5); WHITE BLOOD COUNT 25.7 10^3/uL (4.3-11.0)
[2016-08-29 21:13] LABS: INR 1.5 (0.8-1.4); PROTHROMBIN TIME PATIENT 17.7 SEC (12.2-14.7)
[2016-08-29] MEDS ORDERED: LEVOFLOXACIN 750 MG/150 ML IV 150 ML IV SCH ×2 (22:00)
[2016-08-30] VITALS: BP 89/73
[2016-08-30 01:00] VITALS: BP 92/77
[2016-08-30] MEDS: NS IV 1000 ML 1,000 ML IV SCH ×3 (01:32→09:33)
[2016-08-30 02:00] VITALS: BP 102/68
[2016-08-30 03:00] VITALS: BP 88/73
[2016-08-30 04:00] VITALS: BP 105/86
[2016-08-30 04:11] LABS: BASOPHILS % (AUTO) 0 % (0-10); EOSINOPHILS % (AUTO) 0 % (0-10); LYMPHOCYTES # (AUTO) 1.3 X 10^3 (1.0-4.0); LYMPHOCYTES % (AUTO) 6 % (12-44); MEAN CORPUSCULAR HEMOGLOBIN 29 PG (25-34); MEAN CORPUSCULAR HGB CONC 37 G/DL (32-36); MEAN CORPUSCULAR VOLUME 79 FL (80-99); MEAN PLATELET VOLUME 9.5 FL (7.4-10.4); MONOCYTES # (AUTO) 2.2 X 10^3 (0.0-1.0); MONOCYTES % (AUTO) 10 % (0-12); NEUTROPHILS # (AUTO) 19.7 X 10^3 (1.8-7.8); NEUTROPHILS % (AUTO) 85 % (42-75); PLATELET COUNT 175 10^3/uL (130-400); RED BLOOD COUNT 5.03 10^6/uL (4.35-5.85); RED CELL DISTRIBUTION WIDTH 14.2 % (10.0-14.5); WHITE BLOOD COUNT 23.3 10^3/uL (4.3-11.0)
[2016-08-30 04:30] LABS: ANION GAP 8 MMOL/L (5-14); BLOOD UREA NITROGEN 34 MG/DL (7-18); BUN/CREATININE RATIO 46; CALCIUM 7.4 MG/DL (8.5-10.1); CARBON DIOXIDE 15 MMOL/L (21-32); CHLORIDE 110 MMOL/L (98-107); CREATININE SERUM 0.74 MG/DL (0.60-1.30); GFR ESTIMATED > 60; GLUCOSE 167 MG/DL (70-105); MAGNESIUM 1.7 MG/DL (1.8-2.4); PHOSPHORUS 3.3 MG/DL (2.3-4.7); POTASSIUM 4.7 MMOL/L (3.6-5.0); SODIUM 133 MMOL/L (135-145)
[2016-08-30] MEDS: inSUlin ASPART (NovoLOG) 1 UNIT/0.01 ML (CHARGE PER UNIT) SC SCH (05:19)
[2016-08-30] MEDS: MEROPENEM 500 MG/NS 100 ML IVPB IV SCH ×2 (05:20)
[2016-08-30 05:22] VITALS: BP 105/79
[2016-08-30] MEDS ORDERED: MAGNESIUM 1 GM/100 ML IVPB 100 ML IV SCH (06:00)
[2016-08-30] MEDS ORDERED: KCL 20 MEQ TAB (K-DUR) PO SCH (06:00)
[2016-08-30] MEDS ORDERED: POTASSIUM CL 10MEQ/50ML IVPB 50 ML IV SCH (06:00)
[2016-08-30] MEDS: VANCOMYCIN 1250 MG/NS 250 ML IVPB IV SCH ×2 (06:11)
[2016-08-30] MEDS ORDERED: SODIUM BICARB 8.4% 50 MEQ/50 ML (ABBOTT) SYR IV ONE (06:30)
--- NOTE | 2016-08-30 06:31 | Pulmonary Progress Note ---
Subjective Subjective/Events-last exam No complications noted Exam Exam Vital Signs Date Time Temp Pulse Resp B/P (MAP) Pulse Ox O2 Delivery O2 Flow Rate FiO2 08/30/16 05:22 118 19 105/79 100 Room Air 08/30/16 04:25 100 Room Air 08/30/16 04:00 97.6 117 22 105/86 100 Room Air 08/30/16 03:00 117 19 88/73 100 Room Air 08/30/16 02:00 120 20 102/68 100 Room Air 08/30/16 01:49 122 08/30/16 01:00 121 18 92/77 100 Room Air 08/30/16 00:00 121 19 89/73 100 Room Air 08/30/16 00:00 100 Room Air 08/29/16 23:40 99.1 126 21 106/76 100 Room Air 08/29/16 22:00 128 20 109/85 100 Room Air 08/29/16 21:00 126 17 105/80 100 Room Air 08/29/16 20:44 100 08/29/16 20:00 129 20 95/80 100 Room Air 08/29/16 20:00 100 Room Air 08/29/16 19:00 131 08/29/16 19:00 98.9 133 24 112/78 100 Room Air 08/29/16 18:00 133 27 100/73 Room Air 08/29/16 17:45 131 26 115/74 100 Room Air 08/29/16 16:45 131 22 96/74 100 Room Air 08/29/16 16:00 98.4 Room Air 08/29/16 15:45 131 24 109/85 87 Nasal Cannula 08/29/16 14:45 100 3.00 08/29/16 14:45 135 32 87/70 Nasal Cannula 08/29/16 14:21 98.6 08/29/16 13:45 134 29 111/92 Nasal Cannula 08/29/16 13:00 133 08/29/16 12:46 98.6 08/29/16 12:00 98.8 08/29/16 12:00 Room Air 08/29/16 11:45 131 28 107/87 Nasal Cannula 08/29/16 10:45 126 22 99/77 Nasal Cannula 08/29/16 09:45 124 23 97/72 99 Nasal Cannula 08/29/16 09:00 Nasal Cannula 3.00 08/29/16 08:45 97/64 08/29/16 08:00 98.8 08/29/16 07:00 125 18 97/74 100 Nasal Cannula 08/29/16 07:00 126 08/29/16 06:43 100 3.00 I & O 08/30/16 07:00 Intake Total 5019.5 ml Output Total 935 ml Balance 4084.5 ml General Appearance: Other (laying in bed with difficulty following commands) Neck: Full Range of Motion, Normal Inspection, Non Tender, Supple, Carotid Bruit Respiratory: Chest Non Tender, Decreased Breath Sounds (left decreased breath sounds), Wheezing (right lung) Cardiovascular: Normal Peripheral Pulses, Tachycardia Capillary Refill: Less Than 3 Seconds Gastrointestinal: non tender, soft Extremity: Normal Capillary Refill, Normal Inspection, Normal Range of Motion, Non Tender, No Calf Tenderness, Other (purple/black RLE ) Neurologic/Psychiatric: Other (difficutly following commands right sided paralysis) Skin: Normal Color, Warm/Dry Lymphatic: No Adenopathy Results Lab Laboratory Tests 08/29/16 03:23 08/29/16 14:25 08/29/16 20:55 08/30/16 03:50 Assessment/Plan Assessment/Plan Large left pleural effusion r/o cancer -- Exudative - hemothorax -s/p Pleurx catheter placement - cytology from pleural fluid is suggestive of cancer - pt would probably need pleural bx for definitive dx Acute CVA - with hx of CVA with right sided flaccid paralysis -Repeat CT of head and chest with contrast Severe metabolic acidosis with over respiratory compensation -Will give 1 amp of NaHC03 -check lactic acid hyponatremia - probably secondary to SIDH from cancer -Continue to monitor Arterial occlusion of left foot -Hep gtt -Arterial, venous dopplers pending -consult Dr. Jones if pt is not made comfort care Sepsis - - merrem and vanco -Rodriguez cultures negative Tobacco hx with probable COPD -education Pt's prognosis is very poor. I recommend comfort care. He had CVA with right sided paralysis. He is currently nonverbal. Cytology on second pleural fluid is suggestive of cancer. Clinical Quality Measures DVT/VTE Risk/Contraindication: Risk Factor Score Per Nursin RFS Level Per Nursing on Admit: 2=Moderate TROY GROVES DO Aug 30, 2016 06:31
[2016-08-30] MEDS ORDERED: SODIUM BICARB 8.4% 50 MEQ/50 ML (ABBOTT) SYR ONE (06:35)
[2016-08-30] MEDS: morphine INJ 4 MG/ML 1 ML (VIAL/SYRINGE) IVP PRN (06:59)
[2016-08-30] MEDS: RT-ALBUTEROL/IPRATROPIUM 3 ML (DUONEB) VIAL INH SCH (07:25)
[2016-08-30] MEDS: MAGNESIUM 1 GM/100 ML IVPB 100 ML IV SCH ×2 (07:30→07:47)
--- NOTE | 2016-08-30 07:42 | Diagnostic Imaging Report ---
INDICATION: Pleural effusion. FINDINGS: Upright portable chest shows a large left-sided pleural effusion with compressive atelectasis of the left lung with only a small amount of aeration of the left upper lobe. The effusion is larger compared to the 08/29/2016 study. The right lung remains clear with no effusion on the right. IMPRESSION: Increasing large left-sided pleural effusion. Dictated by: Dictated on workstation # [id number]
[2016-08-30] MEDS: BISACODYL 5 MG (DULCOLAX) TABLET PO SCH (09:00)
[2016-08-30] MEDS: PATCH REMOVAL TP SCH (09:00)
[2016-08-30] MEDS ORDERED: ASPIRIN 325 MG (5 GR) TABLET PO SCH (09:00)
[2016-08-30] MEDS: NICOTINE 21 MG (NICODERM) PATCH TD SCH (09:00)
[2016-08-30] MEDS: ASPIRIN 325 MG (5 GR) TABLET PO SCH (09:00)
[2016-08-30] MEDS: LACTULOSE SYRUP 10GM/15ML (ENULOSE) 30ML UDC PO SCH (09:00)
--- NOTE | 2016-08-30 10:03 | Physical Therapy Progress Note ---
Therapy Progress Note Discussed with nurse, she states patient is now on comfort care will not get PT at this time. MEKHI FOSTER PT Aug 30, 2016 10:03
[2016-08-30] MEDS ORDERED: SALIVA STIMULANT MOUTH SPRAY (BIOTENE) 1.5 OZ MM PRN (10:45)
[2016-08-30] MEDS ORDERED: ARTIFICAL TEARS 0.4 ML UNIT DOSE (REFRESH PLUS) OU PRN (10:45)
[2016-08-30] MEDS ORDERED: ACETAMINOPHEN 650 MG SUPP (TYLENOL) PR PRN (10:45)
[2016-08-30] MEDS ORDERED: LORazepam INJ 2 MG/ML (ATIVAN) VIAL IVP PRN ×2 (10:45→12:15)
[2016-08-30] MEDS ORDERED: BISACODYL 10 MG SUPP (DULCOLAX) PR PRN (10:45)
[2016-08-30] MEDS ORDERED: ONDANSETRON 4 MG/2 ML (SDV) Z0FRAN IVP PRN (10:45)
[2016-08-30] MEDS ORDERED: ARTIFICIAL TEARS OINT (LACRI-LUBE) 3.5 GM TUBE OU PRN (10:45)
[2016-08-30] MEDS ORDERED: RT-ALBUTEROL/IPRATROPIUM 3 ML (DUONEB) VIAL INH PRN (10:45)
--- NOTE | 2016-08-30 11:01 | Progress Note-Hospitalist ---
Progress Note HPI/CC on Admission CC: SOB and weakness w/constipation HPI: This is a 56-year-old white male clinic patient of [facility] the presents to the emergency room with abdominal pain, shortness of breath and constipation for the last 1 week. He was found to have a severe large left- sided pleural effusion and Dr. Sen was consulted who performed thoracentesis and removed 3.7 L of fluid that has been sent to lab for evaluation. Repeat CT scan considering high suspicion of neoplastic process reveals residual infiltrate and pleural fluid that had been removed yesterday. Patient has been placed empirically on cefepime and Levaquin and nebulizer treatments and she denies any significant pain issues. He is being transferred to fourth floor and will be followed up closely for reaccumulation of pleural fluid. Progress Notes/Assess & Plan Date Seen 08/30/16 Admission Dx/Process Assessment: Left-sided pleural effusion status post thoracentesis uncomplicated by Dr. Sen removing 3.7 L of fluid analysis and labs pending Infiltrate noted on repeat CT scan status post thoracentesis empirically placed on cefepime and Levaquin COPD Current smoker Hypertension Chronic illness and debility Diagonsis/Assessment & Plan Chart Review: Pt had catastrophic stroke 2 nights ago and last night developed signs c/w acute arterial thrombosis of the leg Had extensive meeting with family and Dr Donis and will change to comfort care and maintain DNR Unresponsive, family at bedside 12 members Assessment: Catastrophic ischemic CVA with history of TIAs in the past now aphasic, dysphagia and complete decompensation of status unable to recover hospice candidate Acute arterial thrombosis of the lower leg not an anticoagulation candidate Left-sided pleural effusion status post thoracentesis uncomplicated by Dr. Sen removing 3.7 L of fluid analysis and repeat cytology + for malignancy s/ p Pleurx catheter placement Infiltrate noted on repeat CT scan status post thoracentesis empirically placed on cefepime and Levaquin COPD Current smoker Hypertension Chronic illness and debility Severe constipation s/p resolution after SSE Plan: Palliative care Transfer to [facility] on comfort care Unrecoverable due to lung cancer causing widespread arterial clots including catastrophic CVA DAWIT LOZANO DO Aug 30, 2016 11:01
[2016-08-30] MEDS ORDERED: SCOPOLAMINE 1.5 MG (TRANSDERM-SCOP) PATCH TOP SCH (12:15)
[2016-08-30] MEDS ORDERED: PROMETHAZINE INJ 25 MG/ML (PHENERGAN) AMP IVP PRN (12:15)
[2016-08-30] MEDS: morphine INJ 4 MG/ML 1 ML (VIAL/SYRINGE) IV PRN ×4 (14:19→23:12)
[2016-08-30] MEDS: GLYCOPYRROLATE 0.2 MG/ML (ROBINUL) 2 ML VIAL IV PRN ×2 (14:33→21:19)
[2016-08-31] MEDS: morphine INJ 4 MG/ML 1 ML (VIAL/SYRINGE) IV PRN ×4 (01:28→08:07)
[2016-08-31] MEDS: GLYCOPYRROLATE 0.2 MG/ML (ROBINUL) 2 ML VIAL IV PRN ×2 (03:18→08:07)
[2016-08-31] MEDS ORDERED: TROUGH ORDER-PHARMACY XX NR (06:00)
--- NOTE | 2016-08-31 11:25 | Discharge Summary-Hospitalist ---
Diagnosis/Chief Complaint Date of Admission Aug 24, 2016 at 17:27 Date of Discharge Admission Diagnosis Assessment: Left-sided pleural effusion status post thoracentesis uncomplicated by Dr. 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 Sen removing 3.7 L of fluid analysis and repeat cytology + for malignancy s/ p Pleurx catheter placement Infiltrate noted on repeat CT scan status post thoracentesis empirically placed on cefepime and Levaquin COPD Current smoker Hypertension Chronic illness and debility Severe constipation s/p resolution after SSE Plan: Palliative care Transfer to [facility] on comfort care Unrecoverable due to lung cancer causing widespread arterial clots including catastrophic CVA Reason Hospital Visit/Course CC: SOB and weakness w/constipation HPI: This is a 56-year-old white male clinic patient of [facility] the presents to the emergency room with abdominal pain, shortness of breath and constipation for the last 1 week. He was found to have a severe large left- sided pleural effusion and Dr. Sen was consulted who performed thoracentesis and removed 3.7 L of fluid that has been sent to lab for evaluation. Repeat CT scan considering high suspicion of neoplastic process reveals residual infiltrate and pleural fluid that had been removed yesterday. Patient has been placed empirically on cefepime and Levaquin and nebulizer treatments and she denies any significant pain issues. He is being transferred to fourth floor and will be followed up closely for reaccumulation of pleural fluid. Hospital course: Patient had very lengthy and complicated hospital course that year was admitted for abdominal pain and found to have a large pleural effusion on the left. This was managed by thoracentesis by Dr. Sen bit rapidly accumulated requiring a Pleurx catheter but then had respiratory insufficiency following that procedure and placed in the ICU for monitoring. 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 Family very reasonable updated them on the plan for comfort care protocol and that was initiated patient transferred to the floor family at bedside and he a little before 9 o'clock on 08/31/16. Discharge Summary Discharge Physical Examination Allergies: Coded Allergies: No Known Drug Allergies (Unverified , 07/15/14) Vitals & I&Os Vital Signs Date Time Temp Pulse Resp B/P (MAP) Pulse Ox O2 Delivery O2 Flow Rate FiO2 08/31/16 07:30 Room Air 08/30/16 08:00 100 08/30/16 07:00 118 08/30/16 05:22 19 105/79 08/30/16 04:00 97.6 08/29/16 14:45 3.00 Hospital Course Labs (last 24 hrs) Microbiology 08/24/16 Blood Culture - Final, Complete No growth 08/28/16 Mycobacterial Culture - Preliminary, Resulted 08/27/16 MRSA Screen - Final, Complete MRSA not isolated 08/24/16 Anaerobic Culture - Final, Resulted No growth 08/24/16 Fungal Culture - Preliminary, Resulted No growth Discharge Home Medications: Active Scripts Active Reported Aspirin 325 Mg Tablet 325 Mg PO DAILY Losartan-Hctz 100-25 mg Tab (Losartan/Hydrochlorothiazide) 1 Each Tablet 1 Tab PO DAILY Atorvastatin Calcium 10 Mg Tablet 10 Mg PO DAILY Metformin HCl 500 Mg Tablet 500 Mg PO BID Instructions to patient/family Please see electonic discharge instructions given to patient. Clinical Quality Measures DVT/VTE Risk/Contraindication: Risk Factor Score Per Nursin RFS Level Per Nursing on Admit: 2=Moderate DAWIT LOZANO DO Aug 31, 2016 11:25
[2016-09-02] MEDS ORDERED: SCOPOLAMINE PATCH REMOVAL TP SCH (12:14)
== END 2016-08-31 11:43 | disposition expired | DRG 871 ==
LOC: EDUNIT# 15:09 → ER 15:12 → ICU 17:27 → 4TH 08-25 09:28 → ICU 08-28 09:50 → 4TH 08-28 13:00 → ICU 08-28 19:23 → 4TH 08-30 12:45
PROVIDERS: ADMIT Family Medicine; ATTEND Family Medicine
PROC: 0W9B3ZZ Drainage of Left Pleural Cavity, Percutaneous Approach (ICD-10-PCS; principal; 2016-08-24)
PROC: 0B9P30Z Drainage of Left Pleura with Drainage Device, Percutaneous Approach (ICD-10-PCS; 2016-08-28)
DX: A41.9 Sepsis, unspecified organism (principal); I63.9 Cerebral infarction, unspecified; J90 Pleural effusion, not elsewhere classified; E87.2 Acidosis; Z66 Do not resuscitate; E22.2 Syndrome of inappropriate secretion of antidiuretic hormone; I74.3 Embolism and thrombosis of arteries of the lower extremities; Z51.5 Encounter for palliative care; C34.91 Malignant neoplasm of unspecified part of right bronchus or lung; J44.9 Chronic obstructive pulmonary disease, unspecified; I10 Essential (primary) hypertension; E86.0 Dehydration; F17.210 Nicotine dependence, cigarettes, uncomplicated; K59.00 Constipation, unspecified; I69.361 Other paralytic syndrome following cerebral infarction affecting right dominant side; W19.XXXA Unspecified fall, initial encounter; Y92.239 Unspecified place in hospital as the place of occurrence of the external cause; Y99.8 Other external cause status; I69.320 Aphasia following cerebral infarction; I69.391 Dysphagia following cerebral infarction
CPT/HCPCS: 36415; 70450; 70496; 71010; 71250; 71260; 71275; 74176; 76604; 76942; 80048; 80053; 80320; 81000; 82042; 82150; 82805; 82945; 82962; 83605; 83615; 83735; 83986; 84100; 84157; 84478; 85007; 85025; 85027; 85610; 85730; 87040; 87070; 87075; 87081; 87101; 87116; 87205; 87252; 88112; 88305; 89051; 93005; 94640; 94660; 94664; 94760; 96361; 96365